=== PATIENT | male | born 1970 | race Caucasian/White ===

== ENCOUNTER 2018-01-14 10:23 | Outpatient (CLI) | payer BC, SELFPAY ==
[2018-01-14 10:50] VITALS: BP 135/85; PULSE 86; RESP 18; TEMP 35.9
[2018-01-14 11:20] VITALS: BP 141/91; PULSE 74; RESP 18
[2018-01-14 11:50] VITALS: BP 142/107; PULSE 78; RESP 18
[2018-01-14 12:20] VITALS: BP 141/87; PULSE 72; RESP 18
[2018-01-14 12:50] VITALS: BP 136/79; PULSE 73; RESP 18
[2018-01-14 13:09] LABS: Adenovirus F 40/41, stool Not Detected (NotDetected); Astrovirus Not Detected (NotDetected); Campylobacter Not Detected (NotDetected); Clostridium Difficile A/B, PCR Not Detected (NotDetected); Cryptosporidium Not Detected (NotDetected); Cyclospora Cayetanesis Not Detected (NotDetected); Entamoeba histolytica Not Detected (NotDetected); Norovirus Not Detected (NotDetected); Plesimonas Shigalloides, PCR Not Detected (NotDetected); Rotavirus A Not Detected (NotDetected); Salmonella, PCR Not Detected (NotDetected); Sapovirus Not Detected (NotDetected); Shiga-like toxin E coli Not Detected (NotDetected); Shigella Enterovasive E coli Not Detected (NotDetected); Vibrio Cholerae Not Detected (NotDetected); Vibrio, PCR Not Detected (NotDetected); Yersinia Entercolitica, PCR Not Detected (NotDetected)
[2018-01-14 16:42] LABS: Enteroaggregative E coli Detected (NotDetected); Enteropathogenic E coli Detected (NotDetected); Enterotoxigenic E coli Detected (NotDetected); Giardia lamblia Detected (NotDetected)
== END 2018-01-14 12:55 | disposition home or self-care (01) ==
PROVIDERS: Visit Provider Physician Assistant
DX: R19.7 Diarrhea, unspecified (principal); E86.0 Dehydration
CPT/HCPCS: 87507; 96360; 96361

== ENCOUNTER → 2021-03-25 12:55 | Outpatient (CLI) | payer BC, SELFPAY ==
--- NOTE | 2021-03-25 | CA_ITS ---
APPROVED REPORT Attendant Coin Operated Laundry: MAU Laterality: Bilateral Study Quality: Good Indications: Bruits bilateral Doppler Spectral Velocity Analysis ECA (R) 128.10/19.30 cm/s ECA (L) 91.30/16.50 cm/s dICA (R) 68.10/26.20 cm/s dICA (L) 81.60/36.70 cm/s Myke (R) 65.10/28.40 cm/s Myke (L) 77.10/32.90 cm/s pICA (R) 86.70/30.80 cm/s pICA (L) 70.30/22.40 cm/s dCCA (R) 73.20/22.20 cm/s dCCA (L) 86.80/24.70 cm/s pCCA (R) 101.60/17.10 cm/s pCCA (L) 99.50/21.70 cm/s Vert (R) 41.90/10.50 cm/s Vert (L) 47.90/18.00 cm/s ICA/CCA 1.18 ICA/CCA 0.94 Findings Duplex evaluation demonstrates stenosis of the right proximal internal carotid artery <20% with PSV <140 cm/sec, EDV <100 cm/sec, and IC/CC Ratio <4.0. Duplex evaluation demonstrates stenosis of the left proximal internal carotid artery <20% with PSV <140 cm/sec, EDV <100 cm/sec, and IC/CC Ratio <4.0. Duplex evaluation demonstrates antegrade flow of the bilateral Vertebral Arteries. Conclusion Duplex evaluation demonstrates stenosis of the right proximal internal carotid artery <20% with PSV <140 cm/sec, EDV <100 cm/sec, and IC/CC Ratio <4.0. Duplex evaluation demonstrates stenosis of the left proximal internal carotid artery <20% with PSV <140 cm/sec, EDV <100 cm/sec, and IC/CC Ratio <4.0. Duplex evaluation demonstrates antegrade flow of the bilateral Vertebral Arteries. Electronically signed by : Yasmany Lofton MD 03/25/2021 16:15:37
== END ==
PROVIDERS: PCP Family Medicine; Visit Provider Family Medicine
DX: R09.89 Other specified symptoms and signs involving the circulatory and respiratory systems (principal)
CPT/HCPCS: 93880

== ENCOUNTER 2024-01-26 09:02 | Outpatient (CLI) | payer BC, SELFPAY ==
--- NOTE | 2024-01-26 09:18 | CT_ITS ---
FINAL REPORT TECHNIQUE: Thin section axial images were obtained from the lung apices to the upper abdomen by computed tomography. Reformatted images were obtained and reviewed. This study was performed with techniques to keep radiation doses al low as reasonably achievable (ALARA). Individualized dose reduction techniques using automated exposure control or adjustment of mA and/or kV according to the patient's size were employed. CLINICAL HISTORY: SMOKER 1 PPD X 35 YEARS COMPARISON: None FINDINGS: CHEST CT LOW DOSE 54-year-old male, current smoker, 78-dkeb-zzyh history. CTDI vol (mGy): 2.9 DLP (mGy-cm): 113.59 There is no axillary adenopathy. There is no mediastinal or hilar mass or adenopathy. The heart is normal in size. There is no pericardial or pleural effusion. Mild atelectasis is present in the lung bases. Lung window images demonstrate there is a 4 mm left upper lobe nodule, best seen on image #46. There is a nodule at the major fissure, measuring 7 mm in size, likely an intrafissural lymph node. There is a 5 mm nodule in the medial right upper lobe, best seen on image #46. Limited images of the upper abdomen reveal a prior cholecystectomy. IMPRESSION: Lung-RADS category 2. Recommend 12 month follow up low dose chest CT. Reviewed, Interpreted and Dictated by Steven Wells III, MD Transcribed by Emily Greer Authenticated and [facility]
== END 2024-01-26 23:59 | disposition home or self-care (01) ==
LOC: RAD 09:03
PROVIDERS: PCP Psychiatry & Neurology Sleep Medicine; Visit Provider Family Medicine
DX: F17.210 Nicotine dependence, cigarettes, uncomplicated (principal)
CPT/HCPCS: 71271

== ENCOUNTER 2025-04-11 16:20 | Inpatient (IN) | payer BC, SELFPAY ==
--- OUTSIDE RECORDS SUMMARY | 2024-01-17 06:15 | XMS_ITS ---
Author Organization [facility] Address [address] [place] [id number] Care Team Providers Care Cutting And Splicing Supervisor Name Role Phone Steff Ace Primary Care Provider [phone] Allergies No Known Allergies Results Component Value Reference Range Notes Glycohemoglobin A1c (in hous e) Reviewed date:01/17/2024 11:47:36 AM Interpretation: Performing Lab: Notes/Report: glycohemoglobin 6.7% 5 - 6.5 % Cologuard Reviewed date:07/24/2024 12:48:19 PM Interpretation:Negative Performing Lab: Notes/Report: Negative Cologuard Negative P-Comprehensive Metabolic Pa alex (CMP) Reviewed date:01/26/2024 12:25:51 PM Interpretation:gluc 105, a/g 2.9 Performing Lab: Notes/Report: Test performed by [employer], [employer] [facility] , [address], [place] [address] Everette Dee MD, Food And Nutrition Teacher CLIA: [id number] Sodium 139 135-145 mmol/L Potassium 5.1 3.5-5.3 [...] 33 Performing Lab: Notes/Report: Test performed by [employer] [address] , [address], [place] [address] Everette Dee MD, Food And Nutrition Teacher CLIA: [id number] Cholesterol 122 <200 mg/dL Triglycerides 157 <150 [...] Interpretation:Normal Performing Lab: Notes/Report: Test performed by [employer], [address] , [address], [place] [address] Everette Dee MD, Food And Nutrition Teacher CLIA: [id number] PSA 0.18 <4.00 ng/mL Please note this [...] Encounter Location Date Provider Diagnosis [facility] [address] [facility] [address] [facility] [address] [place] [id number] 01/17/2024 Steff Ace Type 2 diabetes mellitus [...] 6 Months, Reason: Provider Name:Steff Washington er, 06/18/2025 10:00:00 AM, [address] [facility] [address] [facility], [address], [place], [phone], Procedure Notes * Category Sub-Category Detail Notes Cryotherapy Actinic Keratosis Number of lesions treated: right buddhist and right hand dorsum Method: Maranda LL-100 used to freeze and refreeze the lesions, The patient tolerated the procedure well. Post Op instruction: Wash with vinegar w ater twice a day, Apply Vaseline twice a day Progress Notes * STEF HERNÁNDEZOB:1970 ([age] yo M)Acc No.[id number]:01/17/2024 Patient: CA ARENAS Provider: Steff Ace M.D. :1970 A ge:53 Y S ex:Male Date:01/17/2024 Address:[address] [place] [address] [address], [place], [id number] Subjective: * Chief Complaints: * 1 . 6 month f/u fasting. 2. Needs labs with PSA, colon cancer screening, low dose chest CT, diabetic eye exam, Tdap, & shingles vaccine. * HPI: C ardiology: The pt is here for a check up on Hypertension and Diabetes. Pt states he has a spot on the right buddhist he would like checked out. Pt states [...] riglycerides 157 H <150 - mg/dL * KelvinSylvia 01/26/2024 12:25:44 PM >See phone encounter 5.?Tobacco use?Imaging: CT Scan : Chest, low dose (Performed Date - 01/26/2024)?nothing suspicious, annual f/u* AdrianeFara 01/18/2024 10:20 :46 AM > auth# [id number], valid 01/18/2024 through 02/16/2024; CPT [id number],Brynn 01/18/2024 10:48:24 AM > [facility] 01/26/2024 at 09:15am; pt informed; order faxedGoble,Joann 01/31/2024 3:00:05 PM > pt informed of results * Procedures: C ryotherapy Actinic Keratosis: Number of lesions treated: r ight buddhist and right hand dorsum. M ethod: W allach LL-100 used to freeze and refreeze the lesions, The patient tolerated the procedure well.. P ost Op instruction: W yung with vinegar water twice a day, Apply Vaseline twice a day. * Procedure Codes: 3 6416 CAPILLARY BLOOD DRAW, [address]1447 GLYCATED HEMOGLOBIN TEST, Modifiers: QW , 70287 DESTRUCTION BENIGN LESION, CRYOSURGERY,ELECTROSURGERY FIRST LESION, 08217 DESTRUCTION BENIGN LESION,CRYO, ELECTRO, 2-14 LESIONS * Follow Up: 6 Months * Images: Billing Information: * Visit Code: 40450 Office Visit, Est Pt., Level 4. * Procedure Codes: 29439 CAPILLARY BLOOD DRAW. 21591 GLYCATED HEMOGLOBIN TEST. Modifiers: QW 14357 DESTRUCTION BENIGN LESION, CRYOSURGERY,ELECTROSURGERY FIRST LESION. 69134 DESTRUCTION BENIGN LESION,CRYO, ELECTRO, 2-14 LESIONS. * Electronic signature of Steff Ace MD on 04/11/2025 at 05:08 PM EDT Sign off status: Pending * Provider: Steff Ace M.D. Date: 0 01/17/2024 Generated for Teja martinez/[place]ismark/eTransmitting on: 0 04/11/2025 05:08 PM EDT History and Physical Notes * HPI (History of Present Illness) Category Sub-Category Detail Notes Category Not es Cardiology Short of Breath Chest Pain Palpitations Dizziness Examination Category Sub-Category Detail Notes Category Not es General Examination HEENT: unremarkable Heart: RSR Lungs: clear to auscultatio n Abdomen: soft and nontender, no organomegaly or masses Extremities: no leg edema General Appearance: NAD Skin: buddhist lesion c/w ac tinic keratosis, keratotic lesion of the right hand dorsum has recurred Neurologic Exam: Intact, gait normal Neck: supple, no lymphaden opathy Oral cavity: no lesions, mucosa m oist and WNL, no erythema Peripheral pulses: normal Back: normal Chest: normal shape and exp ansion
--- OUTSIDE RECORDS SUMMARY | 2024-01-17 06:15 | XMS_ITS ---
Author Organization [facility] Address [address] [place] [id number] Care Team Providers Care Intelligence Engineer Name Role Phone Steff Ace Primary Care [...] 2.9 Performing Lab: Notes/Report: Test performed by [employer], [employer] [facility] , [address], [place] [address] Everette Dee MD, Power And Recovery Shift Engineer CLIA: [id number] Sodium 139 135-145 mmol/L Potassium 5.1 3.5-5.3 [...] 33 Performing Lab: Notes/Report: Test performed by [employer] [address] , [address], [place] [address] Everette Dee MD, Power And Recovery Shift Engineer CLIA: [id number] Cholesterol 122 <200 mg/dL Triglycerides 157 <150 [...] Interpretation:Normal Performing Lab: Notes/Report: Test performed by [employer], [address] , [address], [place] [address] Everette Dee MD, Power And Recovery Shift Engineer CLIA: [id number] PSA 0.18 <4.00 ng/mL Please note this [...] Encounter Location Date Provider Diagnosis [facility] [address] [facility] 36 [facility] [address] [place] [phone] 01/17/2024 Steff Ace Type 2 diabetes mellitus [...] Name:Steff Washington er, 06/18/2025 10:00:00 AM, [address] [facility] 36 [facility], [address], [place], [phone], Procedure Notes * Category Sub-Category Detail Notes Cryotherapy Actinic Keratosis Number of lesions treated: right hindu and right hand dorsum Method: Maranda LL-100 used to freeze and refreeze the lesions, The patient tolerated the procedure well. Post Op instruction: Wash with vinegar w ater twice a day, Apply Vaseline twice a day Progress Notes * STEF HERNÁNDEZOB:1970 ([age] yo M)Acc No.[id number]:01/17/2024 Patient: CA ARENAS Provider: Steff Ace M.D. :1970 A ge:53 Y S ex:Male Date:01/17/2024 Address:[address] [place] [address] [address], [place], [id number] Subjective: * Chief Complaints: * 1 . 6 month f/u fasting. 2. Needs labs with PSA, colon cancer screening, low dose chest CT, diabetic eye exam, Tdap, & shingles vaccine. * HPI: C ardiology: The pt is here for a check up on Hypertension and Diabetes. Pt states he has a spot on the right hindu he would like checked out. Pt states [...] riglycerides 157 H <150 - mg/dL * Rod Warrengh Ann 01/26/2024 12:25:44 PM >See phone encounter 5.?Tobacco use?Imaging: CT Scan : Chest, low dose (Performed Date - 01/26/2024)?nothing suspicious, annual f/u* AdrianeFara 01/18/2024 10:20 :46 AM > auth# [id number], valid 01/18/2024 through 02/16/2024; CPT [id number],Brynn 01/18/2024 10:48:24 AM > [facility] 01/26/2024 at 09:15am; pt informed; order faxedGoble,Joann 01/31/2024 3:00:05 PM > pt informed of results * Procedures: C ryotherapy Actinic Keratosis: Number of lesions treated: r ight hindu and right hand dorsum. M ethod: W allach LL-100 used to freeze and refreeze the lesions, The patient tolerated the procedure well.. P ost Op instruction: W yung with vinegar water twice a day, Apply Vaseline twice a day. * Procedure Codes: 3 6416 CAPILLARY BLOOD DRAW, 68570 GLYCATED HEMOGLOBIN TEST, Modifiers: QW , 61181 DESTRUCTION BENIGN LESION, CRYOSURGERY,ELECTROSURGERY FIRST LESION, 95448 DESTRUCTION BENIGN LESION,CRYO, ELECTRO, 2-14 LESIONS * Follow Up: 6 Months * Images: Billing Information: * Visit Code: 54244 Office Visit, Est Pt., Level 4. * Procedure Codes: 58773 CAPILLARY BLOOD DRAW. 32551 GLYCATED HEMOGLOBIN TEST. Modifiers: QW 85764 DESTRUCTION BENIGN LESION, CRYOSURGERY,ELECTROSURGERY FIRST LESION. 88548 DESTRUCTION BENIGN LESION,CRYO, ELECTRO, 2-14 LESIONS. * Electronic signature of Steff Ace MD on 04/12/2025 at 11:48 AM EDT Sign off status: Pending * Provider: Steff Ace M.D. Date: 0 01/17/2024 Generated for Teja martinez/[place]ismark/eTransmitting on: 0 04/12/2025 11:48 AM EDT History and Physical Notes * HPI (History of Present Illness) Category Sub-Category Detail Notes Category Not es Cardiology Short of Breath Chest Pain Palpitations Dizziness Examination Category Sub-Category Detail Notes Category Not es General Examination HEENT: unremarkable Heart: RSR Lungs: clear to auscultatio n Abdomen: soft and nontender, no organomegaly or masses Extremities: no leg edema General Appearance: NAD Skin: hindu lesion c/w ac tinic keratosis, keratotic lesion of the right hand dorsum has recurred Neurologic Exam: Intact, gait normal Neck: supple, no lymphaden opathy Oral cavity: no lesions, mucosa m oist and WNL, no erythema Peripheral pulses: normal Back: normal Chest: normal shape and exp ansion
--- OUTSIDE RECORDS SUMMARY | 2024-01-20 06:30 | XMS_ITS ---
Author Organization [facility] Address [address] [facility] [address] [place] [id number] Care Team Providers Care Manager Managing Name Role Phone Steff Ace Primary Care Provider REASON FOR VISIT 6 mo ck Encounters Encounter Location Date Provider Diagnosis [facility] [address] [place] [id number] 01/20/2024 Steff Ace Plan Of Treatment Next Appt Details Provider Name:Steff Washington er, 06/18/2025 10:00:00 AM, [address], [address], [place], [phone], Progress Notes * STEF HERNÁNDEZOB:1970 ([age] yo M)Acc No.[id number]:01/20/2024 Progress Notes Patient: CA ARENAS Provider: Steff Ace M.D. :1970 A ge:53 Y S ex:Male Date:01/20/2024 [facility]:[address] [facility] [address], [id number] Subjective: * Chief Complaints: * 1 . 6 mo ck. * Medical History: Objective: * Vitals: Assessment: Plan: * Treatment: * Images: Billing Information: * Visit Code: * Procedure Codes: * Electronic signature of Steff Ace MD on 04/11/2025 at 05:08 PM EDT Sign off status: Pending * Provider: Steff Ace M.D. Date: 0 01/20/2024 Generated for Teja martinez/Bismark/Luis F on: 0 04/11/2025 05:08 PM EDT
--- OUTSIDE RECORDS SUMMARY | 2024-01-20 06:30 | XMS_ITS ---
Author Organization [facility] Address [address] [facility] [address] [place] [phone] Care Team Providers Care Central Processing Technician Name Role Phone Steff Ace Primary Care Provider REASON FOR VISIT 6 mo ck Encounters Encounter Location Date Provider Diagnosis [facility] [address] [place] [id number] 01/20/2024 Steff Ace Plan Of Treatment Next Appt Details Provider Name:Steff Washington er, 06/18/2025 10:00:00 AM, [address], [address], [place], [phone], Progress Notes * STEF HERNÁNDEZOB:1970 ([age] yo M)Acc No.[id number]:01/20/2024 Progress Notes Patient: AC ARENAS Provider: Steff Ace M.D. :1970 A ge:53 Y S ex:Male Date:01/20/2024 Address[facility] [facility] [address], [id number] Subjective: * Chief Complaints: * 1 . 6 mo ck. * Medical History: Objective: * Vitals: Assessment: Plan: * Treatment: * Images: Billing Information: * Visit Code: * Procedure Codes: * Electronic signature of Steff Ace MD on 04/12/2025 at 11:48 AM EDT Sign off status: Pending * Provider: Steff Ace M.D. Date: 0 01/20/2024 Generated for Teja martinez/Bismark/Damionitting on: 0 04/12/2025 11:48 AM EDT
--- OUTSIDE RECORDS SUMMARY | 2024-07-24 05:30 | XMS_ITS ---
Author Organization [facility] Address [address] [place] [id number] Care Team Providers Care Legal Writing Professor Name Role Phone Steff Ace Primary Care Provider Allergies No Known Allergies Results Component Value Reference Range Notes Glycohemoglobin A1c (in hous e) Reviewed date:07/25/2024 09:50:04 AM Interpretation:6.7% Performing Lab: Notes/Report: 6.7% glycohemoglobin 6.7% 5 - 6.5 % P-Comprehensive Metabolic Pa alex (CMP) Reviewed date:07/25/2024 09:50:04 AM Interpretation:gluc 121 Performing Lab: Notes/Report: Test performed by [facility]0 [facility] , [address], [place] [address] Everette Dee MD, Flooring Installer CLIA: [id number] Sodium 139 135-145 mmol/L Potassium 5.2 3.5-5.3 [...] 36 Performing Lab: Notes/Report: Test performed by [facility], [address] , [address] , [place] [address] Everette Dee MD, Flooring Installer CLIA: [id number] Cholesterol 149 <200 mg/dL Triglycerides 184 <150 [...] Interpretation:Normal Performing Lab: Notes/Report: Test performed by [facility] [address] [place] [address] , [address], [place] [address] Everette Dee MD, Flooring Installer CLIA: [id number] Albumin/Creatinine Ratio, Urine <10.7 0-30 ug/m g [...] due to type 2 diabetes mellitus (disorder) (583229456085846) Hyperlipidemia associated with type 2 diabetes mellitus (E11.69) Active confirmed Vital Signs Blood pressure systolic 126 mm Hg 07/24/20 24 Blood pressure diastolic 80 mm Hg 024 Heart Rate 58 /min 07/24/2024 Height 74.50 in 07/24/2024 Weight 249.2 lbs 07/24/2024 BMI 31.56 kg/m2 07/24/2024 Encounters Encounter Location Date Provider Diagnosis [facility] [address] [facility] 36 [facility] [address] [place], [place] [phone] 07/24/2024 Steff Ace Hyperlipidemia associated with type [...] 4 Months, Reason: Provider Name:Steff Washington er, 06/18/2025 10:00:00 AM, [address] [facility] 36 [facility], [address], [place], [phone], Progress Notes * JOE HERNÁNDEZYUSUFOB:1970 ([age] yo M)Acc No.[id number]:07/24/2024 Progress Notes Patient: CA ARENAS Provider: Steff Ace M.D. :1970 A ge:54 Y S ex:Male Date:07/24/2024 Address:[address] [place] [address], [id number] Subjective: * Chief Complaints: * 1 . [...] * Images: Billing Information: * Visit Code: 88666 Office Visit, Est Pt., Level 4. * Procedure Codes: 94981 GLYCATED HEMOGLOBIN TEST. Modifiers: QW * Electronic signature of Steff Ace MD on 04/11/2025 at 05:09 PM EDT Sign off status: Pending * Provider: Steff Ace M.D. Date: 1 Generated for Ritai ng/Fapierog/eTransmitting on: 0 04/11/2025 05:09 PM EDT History and Physical Notes * [...]
--- OUTSIDE RECORDS SUMMARY | 2024-07-24 05:30 | XMS_ITS ---
Author Organization [facility] Address [address] [place] [id number] Care Team Providers Care Vending Technician Name Role Phone Steff Ace Primary Care Provider Allergies No Known Allergies Results Component Value Reference Range Notes Glycohemoglobin A1c (in hous e) Reviewed date:07/25/2024 09:50:04 AM Interpretation:6.7% Performing Lab: Notes/Report: 6.7% glycohemoglobin 6.7% 5 - 6.5 % P-Comprehensive Metabolic Pa alex (CMP) Reviewed date:07/25/2024 09:50:04 AM Interpretation:gluc 121 Performing Lab: Notes/Report: Test performed by [facility] , [address], [place] [address] Everette Dee MD, Network Engineer Administrator CLIA: [id number] Sodium 139 135-145 mmol/L Potassium 5.2 3.5-5.3 [...] 36 Performing Lab: Notes/Report: Test performed by [facility], [address] , [address] , [place] [address] Everette Dee MD, Network Engineer Administrator CLIA: [id number] Cholesterol 149 <200 mg/dL Triglycerides 184 <150 [...] Interpretation:Normal Performing Lab: Notes/Report: Test performed by [facility] [address] [place] [address] , [address], [place] [address] Everette Dee MD, Network Engineer Administrator CLIA: [id number] Albumin/Creatinine Ratio, Urine <10.7 0-30 ug/m g [...] due to type 2 diabetes mellitus (disorder) (069274925099763) Hyperlipidemia associated with type 2 diabetes mellitus (E11.69) Active confirmed Vital Signs Blood pressure systolic 126 mm Hg 07/24/20 24 Blood pressure diastolic 80 mm Hg 024 Heart Rate 58 /min 07/24/2024 Height 74.50 in 07/24/2024 Weight 249.2 lbs 07/24/2024 BMI 31.56 kg/m2 07/24/2024 Encounters Encounter Location Date Provider Diagnosis [facility] [address] [facility] 36 [facility] [address] [place], [place] [phone] 07/24/2024 Steff Ace Hyperlipidemia associated with type [...] Name:Steff [place] er, 06/18/2025 10:00:00 AM, [address] [facility] [address] [facility], [address], [place], [id number], Progress Notes * JOE HERNÁNDEZYUSUFOB:1970 ([age] yo M)Acc No.[id number]:07/24/2024 Progress Notes Patient: CA ARENAS Provider: Steff Ace M.D. :1970 A ge:54 Y S ex:Male Date:07/24/2024 Address:[address] [place] [address], [id number] Subjective: * Chief Complaints: * 1 . [...] * Images: Billing Information: * Visit Code: 75146 Office Visit, Est Pt., Level 4. * Procedure Codes: 62033 GLYCATED HEMOGLOBIN TEST. Modifiers: QW * Electronic signature of Steff Ace MD on 04/12/2025 at 11:49 AM EDT Sign off status: Pending * Provider: Steff Ace M.D. Date: 1 Generated for Printi ng/Fapierog/eTransmitting on: 0 04/12/2025 11:49 AM EDT History and Physical Notes * [...]
--- OUTSIDE RECORDS SUMMARY | 2024-11-13 05:45 | XMS_ITS ---
Author Organization [facility] Address [address] [place] [id number] Care Team Providers Care Rn Internship Name Role Phone Steff Ace Primary Care Provider [phone] Allergies No Known Allergies Results Component Value Reference Range Notes P-Comprehensive Metabolic Pa alex (CMP) Reviewed date:12/08/2024 01:11:50 PM Interpretation:gluc 129 Performing Lab: Notes/Report: Test performed by [facility] [address] [place] [address] , [address], [place] [address] Everette Dee MD, Computer Architect CLIA: [id number] Sodium 139 135-145 mmol/L Potassium 5.2 3.5-5.3 [...] Interpretation:7.3 Performing Lab: Notes/Report: Test performed by [facility] [address] [place] [address] , [facility], [place] [address] Everette Dee MD, Computer Architect CLIA: [id number] Hemoglobin A1C 7.3 <5.7 % The following HbA1c ranges recommended by the [place] Diabetes [employer] (ADA) may be used as an aid in the diagnosis of diabetes mellitus. HbA1c Suggested Diagnosis >=6.5% Diabetic 5.7% - 6.4% Pre-Diabetic <5.7% Non-Diabetic P-Microalbumin/Creatinine, R andom Urine Sample Reviewed date:12/08/2024 01:11:50 PM Interpretation:Normal Performing Lab: Notes/Report: Test performed by [facility] [address] [place] [address] , [facility] [place] [id number] Everette Dee MD, Computer Architect CLIA: [id number] Albumin/Creatinine Ratio, Urine <5.08 0-30 ug/m g Microalbumin, Urine, Random <0.3 Creatinine, Urine 59.0 Estimated Average Glucose Reviewed date:12/08/2024 01:11:50 PM Interpretation:163 Performing Lab: Notes/Report: Test performed by [facility] [address] [place] [address] , [facility], [place] [address] Everette Dee MD, Computer Architect CLIA: [id number] Estimated Average Glucose (eAG) 163 Estimated Average [...] Notes Problem Xanthelasma of right lower eyelid (996179513091872 ) Xanthelasma of right lower eyelid (H02.62) Active confirmed Vital Signs Blood pressure systolic 132 mm Hg 11/14/19 25 Blood pressure diastolic 82 mm Hg 025 Heart Rate 54 /min 11/13/2024 Height 74.50 in 11/13/2024 Weight 249.2 lbs 11/13/2024 BMI 31.56 kg/m2 11/13/2024 Encounters Encounter Location Date Provider Diagnosis [facility] 36 [facility] [address] [place] [id number] 11/13/2024 Steff Ace Type 2 diabetes mellitus [...] Washington er, 06/18/2025 10:00:00 AM, [address] [facility] 36 [facility], [address], [place], [phone], Progress Notes * STEF HERNÁNDEZOB:1970 ([age] yo M)Acc No.[id number]:11/13/2024 Progress Notes Patient: W JACKIE, [place] Provider: Steff Ace M.D. :1970 A ge:54 Y S ex:Male Date:11/13/2024 Address:[address] [place] [address] [place], [id number] Subjective: * Chief Complaints: * 1 . [...] * Images: Billing Information: * Visit Code: 55993 Office Visit, Est Pt., Level 4. * Procedure Codes: 3051F HG A1C>EQUAL 7.0%<8.0%. 3075F SYST BP GE 130 - 139MM HG. 3079F DIAST BP 80-89 MM HG. * Electronic signature of Steff Ace MD on 04/11/2025 at 05:08 PM EDT Sign off status: Pending * Provider: Steff Ace M.D. Date: 0 11/13/2024 Generated for Printi ng/[employer]/eTransmitting on: 0 04/11/2025 05:08 PM EDT History [...]
--- OUTSIDE RECORDS SUMMARY | 2024-11-13 05:45 | XMS_ITS ---
Author Organization [facility] Address [address] [place] [phone] Care Team Providers Care Vice President Residential Solar Sales Name Role Phone Steff Ace Primary Care Provider [phone] Allergies No Known Allergies Results Component Value Reference Range Notes P-Comprehensive Metabolic Pa alex (CMP) Reviewed date:12/08/2024 01:11:50 PM Interpretation:gluc 129 Performing Lab: Notes/Report: Test performed by [facility] [address] [place] [address] , [address], [place] [address] Everette Dee MD, Monument Setter Helper CLIA: [id number] Sodium 139 135-145 mmol/L Potassium 5.2 3.5-5.3 [...] Interpretation:7.3 Performing Lab: Notes/Report: Test performed by [facility] [address] [place] [address] , [facility], [place] [address] Everette Dee MD, Monument Setter Helper CLIA: [id number] Hemoglobin A1C 7.3 <5.7 % The following HbA1c ranges recommended by the [place] Diabetes Association (ADA) may be used as an aid in the diagnosis of diabetes mellitus. HbA1c Suggested Diagnosis >=6.5% Diabetic 5.7% - 6.4% Pre-Diabetic <5.7% Non-Diabetic P-Microalbumin/Creatinine, R andom Urine Sample Reviewed date:12/08/2024 01:11:50 PM Interpretation:Normal Performing Lab: Notes/Report: Test performed by [facility] [address] [place] [address] , [facility] [place] [id number] Everette Dee MD, Monument Setter Helper CLIA: [id number] Albumin/Creatinine Ratio, Urine <5.08 0-30 ug/m g Microalbumin, Urine, Random <0.3 Creatinine, Urine 59.0 Estimated Average Glucose Reviewed date:12/08/2024 01:11:50 PM Interpretation:163 Performing Lab: Notes/Report: Test performed by [facility] [address] [place] [address] , [facility], [place] [address] Everette Dee MD, Monument Setter Helper CLIA: [id number] Estimated Average Glucose (eAG) 163 Estimated Average [...] Notes Problem Xanthelasma of right lower eyelid ([id number] ) Xanthelasma of right lower eyelid (H02.62) Active confirmed Vital Signs Blood pressure systolic 132 mm Hg 11/14/19 25 Blood pressure diastolic 82 mm Hg 025 Heart Rate 54 /min 11/13/2024 Height 74.50 in 11/13/2024 Weight 249.2 lbs 11/13/2024 BMI 31.56 kg/m2 11/13/2024 Encounters Encounter Location Date Provider Diagnosis [facility] 36 [facility] [address] [place] [id number] 11/13/2024 Steff Ace Type 2 diabetes mellitus [...] [place] er, 06/18/2025 10:00:00 AM, [address] [facility] 36 [facility], [address], [place], [phone], Progress Notes * STEF HERNÁNDEZOB:1970 ([age] yo M)Acc No.[id number]:11/13/2024 Progress Notes Patient: W JACKIE, [place] Provider: Steff Ace M.D. :1970 A ge:54 Y S ex:Male Date:11/13/2024 Address:[address] [place] [address] JERMAINE ISLAS, [id number] Subjective: * Chief Complaints: * 1 . [...] mucosa moist and WNL, no erythema. N ajne: s upple, no lymphadenopathy. C hest: n [...] of insulin - E11.9 3 . B MT 31.0-31.9,adult - Z68.31 4 . X anthelasma [...] stimated Average Glucose 163 - mg/dL * [facility], IT support 11/14/2024 07:30:08 : This order was created by the Interface. Joann Montilla 12/08/2024 01:11:42 PM > See phone encounter * Procedure Codes: 3 051F HG A1C>EQUAL 7.0%<8.0%, 3075F SYST BP GE 130 - 139MM HG, 3079F DIAST BP 80- 89 MM HG * Follow Up: 4 Months * Images: Billing Information: * Visit Code: 15903 Office Visit, Est Pt., Level 4. * Procedure Codes: 3051F HG A1C>EQUAL 7.0%<8.0%. 3075F SYST BP GE 130 - 139MM HG. 3079F DIAST BP 80-89 MM HG. * Electronic signature of Steff Ace MD on 04/12/2025 at 11:49 AM EDT Sign off status: Pending * Provider: Steff Ace M.D. Date: 0 11/13/2024 Generated for Printi ng/[employer]/eTransmitting on: 0 04/12/2025 [...]
[2025-04-11] VITALS (8 sets, daily range): BP systolic 139–188; BP diastolic 73–98; PULSE 67–81; RESP 17–18; TEMP 36.6–37.1; O2SAT 95–98; BMI 31.9
--- OUTSIDE RECORDS SUMMARY | 2025-04-11 11:15 | XMS_ITS ---
Author Organization [facility] Address [facility] 36 [facility] [address] [place] [phone] Care Team Providers Care Chemical Process Equipment Operator Name Role Phone Steff Ace Primary Care Provider Tano Grossman Unavailable [phone] Allergies No Known Allergies REASON FOR VISIT [...] Encounter Location Date Provider Diagnosis [facility] [address] [place] [phone] 04/11/2025 Tano Grossman Left inguinal pain R10.32 Assessments Encounter Date Diagnosis (ICD Code) Assessment Notes Treatment Notes Treatment Clinical Notes Section Notes 04/11/2025 Left inguinal pain (ICD-10 - R10.32) Spoke to Dr. Campoverde specialty development consultant for general surgery who recommends evaluation in the ER. Spoke to Dr. Donohue in the ER. She will see patient and evaluation for treatment. Plan Of Treatment Treatment Notes Assessment Notes Left inguinal pain Spoke to Dr. Campoverde specialty development consultant for general surgery who recommends evaluation in the ER. Spoke to Dr. Donohue in the ER. She will see patient and evaluation for treatment. Next Appt Details Provider Name:Steff [place] er, 06/18/2025 10:00:00 AM, 1210 [facility] 36 [facility], [address], [place], [place], [phone], Progress Notes * STEF HERNÁNDEZOB:1970 ([age] yo M)Acc No.[id number]:04/11/2025 Progress Notes Patient: [place] ARENAS Provider: Karan Grossman M.D. :1970 A ge:54 Y S ex:Male Date:04/11/2025 Address:[address] [place] [address] , [id number] Pcp:Steff Ace Subjective: * Chief Complaints: * [...] - R10.32 (Primary) Plan: * Treatment: * Images: Billing Information: * Visit Code: 56251 Office Visit, Est Pt., Level 4. * Procedure Codes: * Electronic signature of Nina Grossman MD on 04/12/2025 at 11:49 AM EDT Sign off status: Pending * Provider: Karan Grossman M.D. Date: 04/11/2025 Generated for Teja martinez/Bismark/Karensmitting on: 0 04/12/2025 11:49 AM EDT History [...]
--- NOTE | 2025-04-11 17:02 | ED_ITS ---
<Statement entered by Lily Donohue DO - 04/15/25 00:05> I was consulted by the SARA, and we discussed the complexity of problems being addressed. I approve the treatment and management plan for this patient's care in the emergency department, thus performing a substantial portion of the medical decision making. Lily Donohue DO Discharge Plan Disposition Patient Disposition: Admitted Condition: Fair Clinical Impressions Clinical Impression: Cutaneous abscess of perineum Discharge ED Provider: Lily Donohue General Adult HPI General Chief complaint: PAIN Stated complaint: ruma sent him to ER, possible hernia Time Seen by Provider: 04/11/25 17:02 Mode of Arrival: Ambulatory Source of Information: Patient Description of Symptoms (Recalled from ER Triage Doc. by RN): PT presents to the ED from Dr. grossman's office with complaints of a possible inguinal hernia. Pt reported the pain and swelling started in his left groin/hip area yesterday at work. Pt states he feels body aches as well. History of Present Illness HPI narrative: 54-year-old male presents to the emergency department at the request of his PCP today for a 2-day history of dull aching and swelling in his left testicle/inguinal/groin region, concern for possible incarcerated versus strangulated inguinal hernia by PCP this prompted to come to the emergency department. Patient denies any fever chills, admits to some subjective body aches , chest pain shortness of breath nausea vomiting constipation diarrhea, denies any overt abdominal pain, denies any urinary type symptomatology, denies urethral discharge, no new sexual contacts, patient is current everyday smoker, denies any alcohol or drug use, other past medical history except for T2DM, prior cholecystectomy otherwise unremarkable past medical history. Please note that above description of symptoms, in this electronic medical record under categorization of recalled from ER triage doctor by RN are reflective of an initial nursing assessment, however, is not reflective of my full history and physical exam that was personally taken and clarified. Consequentially, this preceding description of symptoms, which may include the patient's categorized chief complaint in the EMR, do not reflect my personal clinical impression, and the ultimate description of history of present illness and patient stated complaints should be deferred to this section of the note. Unless stated otherwise or congruent with this section of the note, additional signs, symptoms, or incongruence should be interpreted as inaccurate with my clinical impression. Onset (ago): day(s) Related Data Home Medications ?Medication ?Instructions ?Recorded ?Confirmed dapagliflozin propanediol 10 mg 10 mg PO DAILY 5 04/11/25 tablet (Farxiga) metformin 850 mg tablet 850 mg PO DAILY 04/11/25 Allergies Allergy/AdvReac Type Severity Reaction Status Date / Time No Known Allergies Allergy Verified 01/14/18 10:39 [facility] Disclaimer: The information contained in this section may have been updated after the patient was seen, as this information can be updated by other users. Social History Smoking Status: Current every day smoker alcohol intake: never current occupational status: other Travel in the last 8 weeks?: None ROS Obtained: Yes All systems reviewed & no additional complaints except as documented Physical Exam General General appearance: alert and in no apparent distress Head Head exam: atraumatic and normocephalic Eye Eye exam: Present PERRL and EOMI ENT ENT exam: Present mucous membranes moist Neck Neck exam: Present normal inspection Chest Chest inspection: Present normal inspection and symmetric chest wall rise Respiratory Respiratory exam: Present normal lung sounds bilaterally; Absent respiratory distress Cardiovascular Cardiovascular exam: Present regular rate and normal rhythm Abdominal Exam Abdominal exam: Present soft and hernia; Absent tenderness, guarding, rebound or rigidity Comment: Possible left inguinal hernia, with pain to palpation to the left inguinal region exam: Present testicular tenderness, scrotal swelling and other (Negative Prehn sign, absent cremasteric reflex on the left, scrotal swelling on the left, and mass/possible inguinal hernia from the left inguinal canal); Absent normal testicular lie Extremities Exam Extremities exam: Present normal inspection Neurological Exam Neurological exam: Present alert and oriented X3 Psychiatric Psychiatric exam: Present normal affect Skin Skin exam: Present warm and dry Medical Decision Making Medical Records Medical records reviewed: Yes I reviewed the patient's medical records. Screening: Per USPSTF and CDC recommendations, given the prevalence of disease in our region, it is our hospital?s policy to screen for HIV and viral Hepatitis for all patients aged 18 and over and those with ongoing risk factors. Renato Inquiry Pt receiving controlled substance: No Renato was queried for this patient: No Vital Signs: 04/11/25 16:52 04/11/25 17:06 04/11/25 17:33 Temperature 98.8 F Temperature Source Temporal Artery Scan Pulse Rate 72 67 Pulse Rate [Right] 80 Respiratory Rate 18 Blood Pressure 188/83 H 139/82 Blood Pressure [Right Arm] 161/85 H Blood Pressure Mean [Right Arm] 110 Blood Pressure Source Blood Pressure Source [Right Arm] Automatic Cuff Blood Pressure Position Blood Pressure Position [Right Arm] Sitting 02 Sat by Pulse Oximetry 97 96 98 Oxygen Delivery Method 04/11/25 19:01 04/11/25 19:31 04/11/25 20:01 Temperature Temperature Source Pulse Rate 72 70 77 Pulse Rate [Right] Respiratory Rate Blood Pressure 168/98 H 139/89 153/73 H Blood Pressure [Right Arm] Blood Pressure Mean [Right Arm] Blood Pressure Source Blood Pressure Source [Right Arm] Blood Pressure Position Blood Pressure Position [Right Arm] 02 Sat by Pulse Oximetry 98 97 95 Oxygen Delivery Method 04/11/25 20:19 Temperature 97.9 F Temperature Source Pulse Rate 73 Pulse Rate [Right] Respiratory Rate 17 Blood Pressure 157/73 H Blood Pressure [Right Arm] Blood Pressure Mean [Right Arm] Blood Pressure Source Automatic Cuff Blood Pressure Source [Right Arm] Blood Pressure Position Sitting Blood Pressure Position [Right Arm] 02 Sat by Pulse Oximetry Oxygen Delivery Method Room Air Lab Data Lab results reviewed: Yes I reviewed the patient's lab results. Lab Results 04/11/25 17:22: WBC 15.5 H, RBC 4.92, Hgb 16.0, Hct 46.5, MCV 94.5 H, MCH 32.5 H , MCHC 34.4, RDW 12.0, Plt Count 212, MPV 9.8, Neut % (Auto) 71.4, Lymph % (Auto) 17.2, [place] % (Auto) 9.3, Eos % (Auto) 1.4, Baso % (Auto) 0.2, Neut # (Auto) 11.1 H, Lymph # (Auto) 2.7, [place] # (Auto) 1.4 H, Eos # (Auto) 0.2, Baso # (Auto) 0.0, Sodium 139, Potassium 4.4, Chloride 102, Carbon Dioxide 27, Anion Gap 14.4, BUN 14, Creatinine 0.80, Estimated Creat Clear 165, Estimated GFR 100, Est GFR ( Amer) 121, Glucose 122 H, Lactate 1.4, Calcium 9.3, Total Bilirubin 0.6, AST 24, ALT 21, Alkaline Phosphatase 73, Total Protein 7.7, Albumin 4.8, Globulin 2.9, Albumin/Globulin Ratio 1.7, Lipase 889 H 04/11/25 17:33: Urine Color Yellow, Urine Appearance Clear, Urine pH 6.0, Ur Specific [place] 1.010, Urine Protein Negative, Urine Glucose (UA) 3+, Urine Ketones Negative, Urine Blood Negative, Urine Nitrate Negative, Urine Bilirubin Negative, Urine Urobilinogen 0.2, Ur Leukocyte Esterase Negative, Urine RBC Occasional, Urine WBC Occasional, Ur Squamous Epith Cells Occasional, Urine Bacteria 1+ 04/11/25 17:22 04/11/25 17:22 Orders (Tests/Meds): ED MEDICATIONS Generic Name Dose Route Start Last Admin Trade Name Freq PRN Reason Stop Dose Admin Acetaminophen 650 mg 04/11/25 19:48 Acetaminophen 325mg Tab PO 05/11/25 19:47 Q6HP PRN Fever or Mild Pain (1-3) Sodium Chloride 1,000 mls @ 50 mls/hr 04/11/25 20:00 Sod Chlor 0.9% 1000ml Bag IV 05/11/25 19:59 .Q20H [facility] Vancomycin HCl 2,250 mg/ 250 mls @ 125 mls/hr 04/11/25 20:00 04/11/25 20:49 Sodium Chloride IV 04/11/25 21:59 125 mls/hr ONCE ONE Administration Miscellaneous 1 each 04/11/25 20:00 Vancomycin Consult Request NOTAPPLIC 05/11/25 19:59 CONSULT PHARMACY [facility] Sodium Chloride 100 ml 04/11/25 19:46 Sodium Chloride 0.9% 100ml Adv IV 04/11/25 19:47 ONCE ONE Discontinued Medications Generic Name Dose Route Start Last Admin Trade Name Freq PRN Reason Stop Dose Admin Piperacillin Sod/Tazobactam 50 mls @ 100 mls/hr 04/11/25 19:13 04/11/25 19:49 Sod 3.375 gm/ Sodium Chloride IV 04/11/25 19:42 100 mls/hr ONCE ONE Administration Iopamidol 70 ml 04/11/25 18:42 04/11/25 18:44 Iopamidol-370 (76%);100ml Bottle IV 04/11/25 18:43 70 ml ONCE ONE Administration Sodium Chloride 10 ml 04/11/25 18:42 04/11/25 18:44 Sodium Chloride 0.9% 10ml Syr (Rad Only) IV 04/11/25 18:43 10 ml ONCE ONE Administration ORDERS Category Date Time Status CT abdomen pelvis w con Stat Cat Scan 04/11/25 17:13 Completed Complete Blood Count Auto Diff Stat Lab 04/11/25 17:22 Completed Comprehensive Metabolic Panel Stat Lab 04/11/25 17:22 Completed Lactic Acid Stat Lab 04/11/25 17:22 Completed Lipase Stat Lab 04/11/25 17:22 Completed Urinalysis and Microscopic Stat Lab 04/11/25 17:33 Completed US Testicular Stat Ultrasound 04/11/25 17:14 Completed Medical Decision Narrative: 54-year-old male presents emergency department with request of primary care doctor concern for strangulated hernia lifting with razor, differential endoscopy not limited to, direct inguinal hernia, indirect inguinal hernia, strangulated/incarcerated hernia, bowel obstruction, malignancy, testicular torsion among others. I discussed this patient's case with the attending physician Dr. Donohue Will obtain basic laboratory studies, lactic acid level, lipase level, UA, CT abdomen pelvis with contrast and testicular ultrasound. For further evaluation/characterization. CBC is noted for mild leukocytosis at 15.5, otherwise unremarkable CBC, leukocytosis could be reactive in the setting of pain. UA unremarkable CMP notable for normal lactic acidosis, elevated lipase at 889 otherwise unremarkable. UA microscopic analysis is unremarkable Reviewed the patient's testicular ultrasound along the corresponding radiologic report, bilateral epididymitis, irregular shaped echogenic area of tissue inferior to the bilateral testicles, could reflect focal inflammatory tissue no torsion. I reviewed the patient's CT and pelvis with contrast along the corresponding radiologic report, soft tissue swelling involving the left perineum with skin thickening in this region there is an ill-defined fluid collection measuring 2.8 x 1.8 cm concerning for developing abscess no soft tissue gas or Hernandez's gangrene. Will start patient on prophylactic 3.375 IV Zosyn. I discussed this patient's case with the on-call hospitalist physician Dr. Grossman at approximately 7:25 PM, he recommends touching base with general surgery prior to admission, also potential urology consult due to the location and nature of the patient's abscess. I discussed this patient's case in depth with Dr. Campoverde the on-call general surgeon at approximately 7:40 PM, he reviewed the patient's images, he is amicable for n.p.o. after midnight, admission to the hospitalist service with IV antibiotics, IV Zosyn will cover the patient at this time for possible left- sided peritoneal abscess. I discussed need for admission with the patient family bedside patient and family are in agreement with current treatment plan/admission plan. Patient documented full code. Closed-loop indication was performed with Dr. Grossman the admitting physician, at approximately 7:48 PM, he is in agreement with the current admission plan/treatment plan for perineal abscess, he would like me to add on MRSA coverage, thus will add on IV vancomycin pharmacy to dose. Critical Care Critical Care Time Critical Care Time: No
--- OUTSIDE RECORDS SUMMARY | 2025-04-11 17:09 | XMS_ITS | Clinical Summary ---
[facility] Address [address] [place] [id number] Care Team Providers Care Business Mgr Name Role Phone Awais Ace MD Primary Care Provider [phone] Social History Tobacco Use Types Packs/Day Years Used Date Smoking Tobacco: Never Assessed Abuse Screen Answer Date Recorded Unsafe at Home or Work/School Not on file Feels Threatened by Someone? Not on file Does Anyone Keep You from Co ntacting Others or Doint Things Outside the Home? Not on file 05/07/2023 Physical Sign of Abuse Present Not on file 1 Housing Stability Answer Date Recorded Current Living Arrangements Not on file 04/25 Potentially Unsafe Housing Conditions Not on tejas e 05/07/2023 Family and Community Support Answer Wil e Recorded Help with Day-to-Day Activities Not on file 05/07/2023 Lonely or Isolated Not on file 05/07/2023 Employment Answer Date Recorded Do you want help finding or keeping work or a sophia b? Not on file 05/07/2023 Disabilities Answer Date Recorded Concentrating, Remembering, or Making Decisions Difficulty Not on file 05/07/2023 Doing Errands Independently Difficulty Not on fi le 05/07/2023 Education Answer Date Recorded Help with school or training? Not on file Preferred Language Not on file 05/07/2023 Sex and Gender Information Value Date Recorded Sex Assigned at Not on file Legal Sex Male 10:28 AM EST Gender Identity Not on file Sexual Orientation Not on file Plan of Treatment Health Maintenance Due Date Last Done Comments ANNUAL PHYSICAL 1968 HEPATITIS C SCREENING 1968 TDAP/TD VACCINES (1 - Tdap) 1987 COLOGUARD 2013 COLON CANCER SCREENING 5 YEAR SIGMOIDOSCOPY 2013 COLONOSCOPY [address] CANCER SCREENING 2013 [address] COLONOGRAPHY 2013 FECAL OCCULT BLOOD TEST 2013 FIT Testing (1 year) 2013 Pneumococcal Vaccine 50+ (1 of 1 - PCV) 2018 ZOSTER VACCINE (1 of 2) 2018 COVID-19 Vaccine (2 - season) 03/26/202501/2021 INFLUENZA VACCINE 04/25/2025 Insurance [facility] PPO Care Teams Business Mgr Relationship Specialty Start Date End Date Awais Ace MD [address] [place] [address] PCP - General Family Medicine 09/05/21
--- OUTSIDE RECORDS SUMMARY | 2025-04-11 17:09 | XMS_ITS | Patient Health Record ---
Author Organization [facility] Address [address] [place] [id number] Care Team Providers Care Tank Processor Name Role Phone Steff Aceory Primary Care Provider Tano Grossman Unavailable [phone] Allergies No Known Allergies Results Component Value Reference Range Notes P-Comprehensive Metabolic Pa alex (CMP) Reviewed date:12/08/2024 01:11:50 PM Interpretation:gluc 129 Performing Lab: Notes/Report: Test performed by [facility] , [address], [place] [address] Everette Dee MD, Workforce Development Program Director CLIA: [id number] Sodium 139 135-145 mmol/L Potassium 5.2 3.5-5.3 [...] Interpretation:7.3 Performing Lab: Notes/Report: Test performed by [facility] [address] , [address], [place] [address] Everette Dee MD, Workforce Development Program Director CLIA: [id number] Hemoglobin A1C 7.3 <5.7 % The following HbA1c ranges recommended by the [place] [employer] (ADA) may be used as an aid in the diagnosis of diabetes mellitus. HbA1c Suggested Diagnosis >=6.5% Diabetic 5.7% - 6.4% Pre-Diabetic <5.7% Non-Diabetic P-Microalbumin/Creatinine, R andom Urine Sample Reviewed date:12/08/2024 01:11:50 PM Interpretation:Normal Performing Lab: Notes/Report: Test performed by [facility] [address] [place] [address] , [address], [place] [address] Everette Dee MD, Workforce Development Program Director CLIA: [id number] Albumin/Creatinine Ratio, Urine <5.08 0-30 ug/m g Microalbumin, Urine, Random <0.3 Creatinine, Urine 59.0 Estimated Average Glucose Reviewed date:12/08/2024 01:11:50 PM Interpretation:163 Performing Lab: Notes/Report: Test performed by [facility] [address] [place] [address] , [address], [place] [address] Everette Dee MD, Workforce Development Program Director CLIA: [id number] Estimated Average Glucose (eAG) 163 Estimated Average Glucose (eAG) is calculated using the equation eAG = (28.7 x HbA1c) - 46.7 based on the guidelines established by the ADA. If the patient has certain diseases including kidney disease, sickle cell anemia, thalassemia, or is taking medications such as dapsone, erythropoietin, or iron, eAG should not be evaluated. Glycohemoglobin A1c (in hous e) Reviewed date:07/25/2024 09:50:04 AM Interpretation:6.7% Performing Lab: Notes/Report: 6.7% glycohemoglobin 6.7% 5 - 6.5 % P-Comprehensive Metabolic Pa alex (CMP) Reviewed date:07/25/2024 09:50:04 AM Interpretation:gluc 121 Performing Lab: Notes/Report: Test performed by [facility], [address], [place] [address] Everette Dee MD, Workforce Development Program Director CLIA: [id number] Sodium 139 135-145 mmol/L Potassium 5.2 3.5-5.3 [...] 36 Performing Lab: Notes/Report: Test performed by [facility], [address] , [address], [place] [address] Everette Dee MD, Workforce Development Program Director CLIA: [id number] Cholesterol 149 <200 mg/dL Triglycerides 184 <150 [...] Interpretation:Normal Performing Lab: Notes/Report: Test performed by [facility], [address] , [facility], [place] [address] Everette Dee MD, Workforce Development Program Director CLIA: [id number] Albumin/Creatinine Ratio, Urine <10.7 0-30 ug/m g Microalbumin, Urine, Random <0.3 Creatinine, Urine 27.9 Medications Medication SIG (Take, Route, Frequency, Duration) [...] DAY with a meal; Duration: 90 Active Immunizations Vaccine Route Administration Date Status Comme nts COVID 19 Catrina Unknown 10/30/2020 Administered COVID 19 Moderna Unknown 07/02/2021 Administered Hepatitis A (adult) IM Intramuscular 07/31/2013 Administer ed Tetanus Tdap-Adacel (over 7yrs) IM Intramuscular 07/31/2013 Administered Tetanus Tdap-Adacel (over 7yrs) IM Intramuscular 07/24/2024 Administered Typhoid vaccine IM Intramuscular 08/03/2013 Administered xFlu shot-36 months and older IM Intramuscular 07/07/2008 Administered xFluzone (6mos and older)-trivalent IM Intramuscular 07/31/2013 Administered Problems Problem Type SNOMED Code ICD Code Onset Dates Problem Status W/U Status Risk Notes Problem Hyperlipidemia (29579646) Hyperlipidemia (272.4) Active confirmed Problem Vitamin B12 deficiency (922647650) Vitamin B12 deficiency (E53.8) Active confirmed Problem Bilateral caroti d bruits (R09.89) Active confirmed Problem Hyperlipidemia (22572314) Hyperlipidemia, unspecified (E78.5) Active confirmed Problem Xanthelasma of right lower eyelid (591628802066527) Xanthelasma of right lower eyelid (H02.62) Active confirmed Problem Abscess of skin and/or subcutaneous tissue caused by ingrown hair (disorder) (930225602) Pilonidal cyst with abscess (L05.01) Active confirmed Problem Hyperlipidemia due to type 2 diabetes mellitus (disorder) (426286937181045) Hyperlipidemia associated with type 2 diabetes mellitus (E11.69) Active confirmed Problem Hyperlipidemia (20584280) Hyperlipidemia, unspecified (E78.5) Active confirmed Problem Chronic fatigue syndrome (51902623) Chronic fatigue (R53.82) Active confirmed Problem Neoplasm of skin of neck (140289798) 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 confirmed Problem Paresthesia (finding) (06326806) Paresthesias (R20.2) Active confirmed Problem Body mass index 30.00 to 34.99 (341707619487847) BMI 31.0-31.9,adult (Z68.31) Active confirmed Problem Type II diabetes mellitus without complication (392921828) Type 2 diabetes mellitus without complication, without long-term current use of insulin (E11.9) Active confirmed Problem Sebaceous cyst of right eyelid (0732044607415453 1) Sebaceous cyst of right eyelid (H02.823) Active confirmed Problem Benign prostatic hypertrophy without outflow obstruction (196956761) Benign prostatic hyperplasia without lower urinary tract symptoms (N40.0) Active confirmed Problem 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 Vital Signs Heart Rate 70 /min 04/11/2025 Blood pressure diastolic 80 mm Hg 04/11/2025 Height 74.50 in 04/11/2025 Blood pressure systolic 130 mm Hg 04/11/2025 Weight 249.0 lbs 04/11/2025 BMI 31.54 kg/m2 04/11/2025 Encounters Encounter Location Date Provider Diagnosis [facility] [address] [place], [place] [phone] 07/24/2024 Steff Ace Hyperlipidemia associated with type 2 diabetes mellitus E11.69 ; Type 2 diabetes mellitus without complication, without long-term current use of insulin E11.9 and Encounter for immunization Z23 [facility] [address] [place], [place] [id number] 11/13/2024 Steff Ace Type 2 diabetes claire itus without complication, without long-term current use of insulin E11.9 ; Hyperlipidemia, unspecified E78.5 ; BMI 31.0-31.9,adult Z68.31 and Xanthelasma of right lower eyelid H02.62 [facility] [address] [facility] [address] [place], [place] [phone] 04/11/2025 [place] Left inguinal pain R10.32 [facility] [address] [place], [place] [phone] 07/25/2024 Steff Ace [facility] [address] [place], [place] [phone] 12/08/2024 Steff Ace Assessments Encounter Date Diagnosis (ICD Code) Assessment Notes Treatment Notes Treatment Clinical Notes Section Notes 07/24/2024 Hyperlipidemia associated with type 2 diabetes mellitus (ICD-10 - E11.69) 07/24/2024 Type 2 diabetes mellitus without complication, without long-term current use of insulin (ICD-10 - E11.9) 11/13/2024 Hyperlipidemia, unspecified (ICD-10 - E78.5) 11/13/2024 Type 2 diabetes mellitus without complication, without long-term current use of insulin (ICD-10 - E11.9) 04/11/2025 Left inguinal pain (ICD-10 - R10.32) 07/24/2024 Encounter for immunization (ICD-10 - Z23) 11/13/2024 BMI 31.0-31.9,adult (ICD-10 - Z68.31) 11/13/2024 Xanthelasma of right lower eyelid (ICD-10 - H02.62) Plan Of Treatment Next Appt Details Provider Name:Steff [place] er, 06/18/2025 10:00:00 AM, [address], [address], [place], [phone], Insurance Providers Payer Name Payer Address Payer Phone Subscriber Number Group Number Insured Name Patient Relationship to Insured Coverage Start Date Coverage End Date [employer] [address] [place] [address] [id number] [place] HERN[place]NDEZ Self - patient is the insured Medications Administered Medication Instructions Date of Administration Dosage Notes B-12 12/17/2020 1 mL Medical (General) History Medical History History ICD Code type 2 diabetes hyperlipidemia Vitamin B 12 deficiency Surgical History Surgery Date(Month/Year) gallbladder 2002 Hemorrhoidectomy- Dr Steven Fernando [address] Quinn
--- NOTE | 2025-04-11 17:13 | CT_ITS ---
PROCEDURE INFORMATION: Exam: CT Abdomen And Pelvis With Contrast Exam date and time: 04/11/2025 6:47 PM Age: 54 years old Clinical indication: Other: Left groin pain; Additional info: Concern for left inguinal hernia/left groin pain TECHNIQUE: Imaging protocol: Computed tomography of the abdomen and pelvis with contrast. Radiation optimization: All CT scans at this facility use at least one of these dose optimization techniques: automated exposure control; mA and/or kV adjustment per patient size (includes targeted exams where dose is matched to clinical indication); or iterative reconstruction. Contrast material: ISOVUE; Contrast volume: 75 ml; Contrast route: IV; COMPARISON: US TESTICULAR 04/11/2025 5:41 PM FINDINGS: Liver: Fatty liver Gallbladder and biliary ducts: Cholecystectomy Pancreas: Normal. No ductal dilation. Spleen: Normal. No splenomegaly. Adrenal glands: Normal. No mass. Kidneys and ureters: Normal. No hydronephrosis. Stomach and bowel: Unremarkable. No obstruction. No mucosal thickening. Appendix: No evidence of appendicitis. Intraperitoneal space: Unremarkable. No free air. No significant fluid collection. Vasculature: Unremarkable. No abdominal aortic aneurysm. Lymph nodes: Unremarkable. No enlarged lymph nodes. Urinary bladder: Unremarkable as visualized. Reproductive: Unremarkable as visualized. Bones/joints: Unremarkable. No acute fracture. Soft tissues: Soft tissue swelling involving the left perineum with skin thickening. In this region there is a ill-defined fluid collection measuring 2.8 x 1.8 cm concerning for developing abscess. No soft tissue gas or Hernandez's gangrene IMPRESSION: Soft tissue swelling involving the left perineum with skin thickening. In this region there is an ill-defined fluid collection measuring 2.8 x 1.8 cm concerning for developing abscess. No soft tissue gas or Hernandez's gangrene
--- NOTE | 2025-04-11 17:14 | US_ITS ---
PROCEDURE INFORMATION: Exam: US Scrotum Exam date and time: 04/11/2025 5:41 PM Age: 54 years old Clinical indication: Scrotum pain; Additional info: Rule out torsion -- lt testicular pain TECHNIQUE: Imaging protocol: Real-time ultrasound of the scrotum and contents with color Doppler and image documentation. COMPARISON: No relevant prior studies available. FINDINGS: Right testicle: No mass. Normal color Doppler and arterial waveforms. No torsion. 3.3 x 1.7 x 3.4 cm. Left testicle: No mass. Normal color Doppler and arterial waveforms. No torsion. 3.1 x 1.6 x 2.6 cm. Epididymides: . Bilateral epididymal inflammation and increased echogenicity. Scrotum/soft tissues: No hydroceles. Irregularly shaped echogenic areas of tissue inferior to bilateral testicles could reflect focal inflammatory tissue. IMPRESSION: Bilateral epididymitis. Irregularly shaped echogenic areas of tissue inferior to bilateral testicles could reflect focal inflammatory tissue. No torsion
--- NOTE | 2025-04-11 17:14 | PC.NURSE ---
I notified radiology we would need a testicular US to rule out torsion.
[2025-04-11 17:31] LABS: Hematocrit 46.5 % (42.0-52.0); Hemoglobin 16.0 g/dL (14.1-18.0); Immature Granulocytes % 0.5 %; Mean Corpuscular HGB Conc 34.4 g/dL (31.8-35.4); Mean Corpuscular Hemoglobin 32.5 pg (27.0-31.2); Mean Corpuscular Volume 94.5 fl (80-94); Nucleated Red Blood Cells % 0 %; Platelet Count 212 K/mm3 (142-424); Red Blood Count 4.92 M/mm3 (4.60-6.20); Red Cell Distribution Width-SD 42.5 fL; White Blood Count 15.5 K/mm3 (4.8-10.8)
[2025-04-11 17:39] LABS: Microscopic, Urine URINE MICROSCOPIC (MICROSCOPIC)
[2025-04-11 17:42] LABS: Bilirubin,Urine Negative (Negative); Color,Urine YELLOW (Yellow); Glucose,Urine (UA) 3+ (Negative); Ketones,Urine Negative (Negative); Leukocyte Esterase,Urine Negative (Negative); PH,Urine 6.0 (5.0-8.5); Protein,Urine Negative (Negative); Specific Gravity, Urine 1.010 (1.005-1.030); Urobilinogen,Urine 0.2 EU/dl (0.2)
[2025-04-11 18:00] LABS: Albumin Level 4.8 g/dl (3.5-5.0); Chloride 102 mmol/L (98-107); Potassium 4.4 mmoL/L (3.5-5.1); Sodium 139 mmol/L (136-145)
[2025-04-11 18:03] LABS: Alanine Aminotransferase 21 U/L (12-78); Albumin/Globulin Ratio 1.7 (1.1-1.8); Alkaline Phosphatase 73 U/L (38-126); Anion Gap 14.4 mEq/L (5-15); Aspartate Amino Transferase 24 U/L (17-59); Bilirubin,Total 0.6 mg/dl (0.2-1.3); Blood Urea Nitrogen 14 mg/dl (9-20); Carbon Dioxide 27 mmol/L (22.0-30.0); Creatinine Clearance Estimated 165 mL/min (50-200); Creatinine,Serum 0.80 mg/dl (0.66-1.25); Estimated Glomerular Filt Rate 100 ml/min (>60); GFR (African American) 121 ML/MIN (>60); Globulin 2.9 g/dL (1.3-3.2); Total Protein,Serum 7.7 g/dl (6.3-8.2)
[2025-04-11 18:04] LABS: Calcium 9.3 mg/dl (8.4-10.2); Glucose 122 mg/dl (74-100)
[2025-04-11 18:14] LABS: Lipase 889 U/L (23-300)
[2025-04-11 18:34] LABS: Bacteria,Urine 1+ /lpf; RBC,Urine Occasional #/hpf (0-3); Squamous Epithelial Cell,Urine Occasional #/hpf (0-5); WBC,Urine Occasional #/hpf (0-3)
[2025-04-11] MEDS: IOPAMIDOL-370 (76%);100ML BOTTLE 70 ML IV (18:44)
[2025-04-11] MEDS: SODIUM CHLORIDE 0.9% 10ML SYR (RAD ONLY) 10 ML IV (18:44)
[2025-04-11] MEDS: PIPERCILLIN/TAZO 3.375 GM in 0.9 % SODIUM CHLORIDE 50 ML IV (19:49)
[2025-04-11] MEDS: VANCOMYCIN HCL 2,250 MG in 0.9 % SODIUM CHLORIDE 250 ML 125 MG IV (20:49)
[2025-04-11] MEDS: 0.9 % SODIUM CHLORIDE 1000ML 1,000 ML 50 ML IV (22:54)
[2025-04-12] VITALS (15 sets, daily range): BP systolic 109–159; BP diastolic 67–91; PULSE 62–72; RESP 14–20; TEMP 36.1–37.1; O2SAT 92–97; BMI 31.9
--- NOTE | 2025-04-12 07:04 | EXP.SURG.CON ---
History of Present Illness *Admission Date: 04/11/25 *Reason for visit:: Perineal abscess *History of present illness: This is a 54-year-old gentleman seen in consultation after evaluation emergency department for increasing left groin pain. Evaluation included a CT scan that revealed evidence consistent with left margin perineal abscess. [facility] Disclaimer: The information contained in this section may have been updated after the patient was seen, as this information can be updated by other users. Medical History Smoker Diabetes FH: cholecystectomy Surgical History (Updated 04/11/25 @ 22:31 by Dylon Denise RN) H/O hemorrhoidectomy Social History (Updated 04/11/25 @ 21:42 by SHANTE Benavides) Smoking Status: Current every day smoker alcohol intake: never current occupational status: other Travel in the last 8 weeks?: None Have you lived/traveled outside US in past 30 days?: No Contact w/someone who lives/traveled outside US past 30 days?: No Exposure to someone with infectious disease in past 14 days?: No Do you have a fever (greater than 100.4 F or 38 C)?: No Have you tested positive for COVID-19?: No Exposed to someone with COVID-19 in past 14 days?: No Do you have a sore throat?: No Do you have a cough?: No Do you have any weakness?: No Do you have any diarrhea?: No Are you experiencing any unusual bleeding?: No Do you have any muscle aches/pain?: No Do you have any abdominal pain?: No Are you experiencing loss of taste or smell?: No Review of Systems Review of Systems Review of systems:: pertinent systems reviewed and negative unless documented below *Genitourinary Genitourinary: Reports as per [facility] Meds Home Medications and Allergies Home Medications ?Medication ?Instructions ?Recorded ?Confirmed ?Type dapagliflozin propanediol 10 mg 10 mg PO DAILY 04/11/25 04/11/25 History tablet (Farxiga) metformin 850 mg tablet 850 mg PO DAILY 04/11/25 04/11/25 History New Prescriptions to Start Prescriptions: Allergies Allergy/AdvReac Type Severity Reaction Status Date / Time No Known Allergies Allergy Verified 01/14/18 10:39 Exam (Inpt) Vital signs and Labs for Last 24 Hours: Temp Pulse Resp BP Pulse Ox O2 Del Method 98.7 F 65 16 145/80 H 95 Room Air 04/12/25 04:00 04/12/25 04:00 04/12/25 04:00 04/12/25 04:00 04/12/25 04:00 04/12/25 05:00 Laboratory Results - last 24 hr 04/11/25 17:22: WBC 15.5 H, RBC 4.92, Hgb 16.0, Hct 46.5, MCV 94.5 H, MCH 32.5 H, MCHC 34.4, RDW 12.0, Plt Count 212, MPV 9.8, Neut % (Auto) 71.4, Lymph % (Auto) 17.2, [place] % (Auto) 9.3, Eos % (Auto) 1.4, Baso % (Auto) 0.2, Neut # (Auto) 11.1 H, Lymph # (Auto) 2.7, [place] # (Auto) 1.4 H, Eos # (Auto) 0.2, Baso # (Auto) 0.0, Sodium 139, Potassium 4.4, Chloride 102, Carbon Dioxide 27, Anion Gap 14.4, BUN 14, Creatinine 0.80, Estimated Creat Clear 165, Estimated GFR 100, Est GFR ( Amer) 121, Glucose 122 H, Lactate 1.4, Calcium 9.3, Total Bilirubin 0.6, AST 24, ALT 21, Alkaline Phosphatase 73, Total Protein 7.7, Albumin 4.8, Globulin 2.9, Albumin/Globulin Ratio 1.7, Lipase 889 H 04/11/25 17:33: Urine Color Yellow, Urine Appearance Clear, Urine pH 6.0, Ur Specific [place] 1.010, Urine Protein Negative, Urine Glucose (UA) 3+, Urine Ketones Negative, Urine Blood Negative, Urine Nitrate Negative, Urine Bilirubin Negative, Urine Urobilinogen 0.2, Ur Leukocyte Esterase Negative, Urine RBC Occasional, Urine WBC Occasional, Ur Squamous Epith Cells Occasional, Urine Bacteria 1+ I & O for Labs for Last 24 Hours: Intake & Output 04/09/25 04/10/25 04/11/25 04/12/25 11:59 11:59 11:59 11:59 Intake Total 500 / 500 Output Total 350 / 350 Balance 150 / 150 Weight 248 lb 14.4 oz Constitutional: no acute distress Respiratory: Absent respiratory distress Cardiac: Absent Tachycardia GI: Present soft Comment:: Inflammation/induration along left perineal margin with projection to the scrotum Results Labs 04/11/25 17:22 04/11/25 17:22 Labs: Laboratory Results - last 24 hr 04/11/25 17:22: WBC 15.5 H, RBC 4.92, Hgb 16.0, Hct 46.5, MCV 94.5 H, MCH 32.5 H, MCHC 34.4, RDW 12.0, Plt Count 212, MPV 9.8, Neut % (Auto) 71.4, Lymph % (Auto) 17.2, [place] % (Auto) 9.3, Eos % (Auto) 1.4, Baso % (Auto) 0.2, Neut # (Auto) 11.1 H, Lymph # (Auto) 2.7, [place] # (Auto) 1.4 H, Eos # (Auto) 0.2, Baso # (Auto) 0.0, Sodium 139, Potassium 4.4, Chloride 102, Carbon Dioxide 27, Anion Gap 14.4, BUN 14, Creatinine 0.80, Estimated Creat Clear 165, Estimated GFR 100, Est GFR ( Amer) 121, Glucose 122 H, Lactate 1.4, Calcium 9.3, Total Bilirubin 0.6, AST 24, ALT 21, Alkaline Phosphatase 73, Total Protein 7.7, Albumin 4.8, Globulin 2.9, Albumin/Globulin Ratio 1.7, Lipase 889 H 04/11/25 17:33: Urine Color Yellow, Urine Appearance Clear, Urine pH 6.0, Ur Specific [place] 1.010, Urine Protein Negative, Urine Glucose (UA) 3+, Urine Ketones Negative, Urine Blood Negative, Urine Nitrate Negative, Urine Bilirubin Negative, Urine Urobilinogen 0.2, Ur Leukocyte Esterase Negative, Urine RBC Occasional, Urine WBC Occasional, Ur Squamous Epith Cells Occasional, Urine Bacteria 1+ Assessment and Plan *Assessment and plan (1) Cutaneous abscess of perineum: Status: Acute Category: Medical Code(s): L02.215 - Cutaneous abscess of perineum Plan: Continue overall management as per primary service Incision and drainage scheduled for this AM I have discussed the risks and benefits including, but not limited to: Bleeding Infection Damage to surrounding tissue Inherent risks of sedation The patient agrees to proceed.
[2025-04-12 08:08] LABS: POC Glucose,Bedside 129 gm/dL (70-110)
--- NOTE | 2025-04-12 08:11 | P.PNANES_ITS ---
[facility] Disclaimer: The information contained in this section may have been updated after the patient was seen, as this information can be updated by other users. Medical History Smoker Diabetes FH: cholecystectomy Surgical History (Updated 04/11/25 @ 22:31 by Dylon Denise RN) H/O hemorrhoidectomy Social History (Updated 04/11/25 @ 21:42 by SHANTE Benavides) Smoking Status: Current every day smoker alcohol intake: never substance use type: denies use current occupational status: other Travel in the last 8 weeks?: None [facility] Anesthesia Checklist Patient Identification Patient Identification: Arm Band and Verbal (Name & ) Structural Data Admitted From: Inpatient Planned Operative Procedure/s: I&D Perineal abscess Consent for Planned Operative Procedure(s) Verified: Yes Verified Documents: Surgical Consent NPO Status Verified Time NPO: 00:00 Chart Verification Results Verified: CBC and BMP Additional verifications Fingerstick Blood Glucose: 129 Anesthesia Reactions: No Airway Assessment Mallampati Score:: Class II C-Spine Mobility Assessed: Yes TMJ Mobility Assessed: Yes Dentition: Good Dentition Neurological Assessment Level of Consciousness: Awake, Alert and Appropriate Hx Seizures: No Numbness or tingling in extremities: No Anesthesia Plan Anesthesia Risk discussed: Yes Anesthesia Plan: Verified ASA Class: II Anesthesia Type: General
[2025-04-12] MEDS: LIDOCAINE 1% 20ML MDV 20 ML (09:33)
[2025-04-12] MEDS: METRONIDAZ/SOD CHL 500 MG/100 ML PIGGYBACK 100 MG IV (09:37)
--- NOTE | 2025-04-12 09:43 | P.OP_ITS ---
Date of procedure: 04/12/25 Pre-op Diagnosis:: Left perineal abscess Post-op Diagnosis:: Same Procedure performed:: Incision and drainage of complex left perineal abscess Surgeon:: Jin Campoverde MD ASSEMBLY LINE DRIVER:: Alexandro Butler Anesthesia: local and LMA Estimated blood loss (mL): 5 Operative findings:: Deep complex pocket of purulence projecting from the left perineal space to the scrotal/groin margin anteriorly Operative note:: After informed consent was obtained the patient was taken to the operating room and placed in the supine position. General anesthesia with laryngeal mask airway was achieved. He was transferred to a modified lithotomy position. His perineal region was prepped and draped in a sterile fashion. An elliptical incision was made around the central portion of the palpable abscess cavity. A pocket of purulent fluid was evacuated. Fluid was obtained for Gram stain/culture. The cavity tracked anteriorly/medially to the scrotal/groin margin. Electrocautery was utilized to achieve hemostasis. The wound was packed with Kerlix that was then infiltrated with 1% lidocaine. Dressings were applied and the patient was transferred to recovery in stable condition after removal of his laryngeal mask airway. Condition: stable Disposition: PACU Specimens:: Fluid for Gram stain/culture Complications:: No immediate
--- NOTE | 2025-04-12 09:57 | EXP.ANES.I ---
[facility] Anesthesia Record Part I Anesthesia Record I Intake, IV Amount: 500 Hydration: Adequate Estimated blood loss (mL): 0 Urine output (mL): 0 Blood Products used (#): none Blood Pressure: 109/73 SaO2: 93 Pulse Rate: 69 Airway Patency: Patent Respiratory Rate: 14 Temperature: 97.0 F Patient is:: Nasal O2, Oral/Nasal airway and Somnolent Stable to PACU at:: 09:50
[2025-04-12 10:12] LABS: POC Glucose,Bedside 130 gm/dL (70-110)
[2025-04-12] MEDS: ACETAMINOPHEN 325MG TAB 650 MG PO (10:39)
--- OUTSIDE RECORDS SUMMARY | 2025-04-12 11:50 | XMS_ITS | Clinical Summary ---
[facility] Address [address] [place] [id number] Care Team Providers Care Boy'S Adviser Name Role Phone Awais Ace MD Primary Care Provider [phone] Social History Tobacco Use Types Packs/Day Years [...] - season) 03/26/202501/2021 INFLUENZA VACCINE 04/25/2025 Insurance [facility] PPO Care Teams Boy'S Adviser Relationship Specialty Start Date End Date Awais Ace MD [address] [place] [id number] PCP - General Family Medicine 09/05/21
--- OUTSIDE RECORDS SUMMARY | 2025-04-12 11:50 | XMS_ITS | Patient Health Record ---
Author Organization [facility] Address [address] [facility] [address] [place] [id number] Care Team Providers Care Diesel Technician Name Role Phone Steff Aceory Primary Care Provider Tano Grossman Unavailable [phone] Allergies No Known Allergies Results Component Value Reference Range Notes P-Comprehensive Metabolic Pa alex (CMP) Reviewed date:12/08/2024 01:11:50 PM Interpretation:gluc 129 Performing Lab: Notes/Report: Test performed by [facility] , [address], [place] [address] Everette Dee MD, Public Opinion Survey Taker CLIA: [id number] Sodium 139 135-145 mmol/L Potassium 5.2 3.5-5.3 [...] Interpretation:7.3 Performing Lab: Notes/Report: Test performed by [facility] [address] , [address], [place] [address] Everette Dee MD, Public Opinion Survey Taker CLIA: [id number] Hemoglobin A1C 7.3 <5.7 % The following HbA1c ranges recommended by the [place] [employer] (ADA) may be used as an aid in the diagnosis of diabetes mellitus. HbA1c Suggested Diagnosis >=6.5% Diabetic 5.7% - 6.4% Pre-Diabetic <5.7% Non-Diabetic P-Microalbumin/Creatinine, R andom Urine Sample Reviewed date:12/08/2024 01:11:50 PM Interpretation:Normal Performing Lab: Notes/Report: Test performed by [facility] [address] [place] [address] , [address], [place] [address] Everette Dee MD, Public Opinion Survey Taker CLIA: [id number] Albumin/Creatinine Ratio, Urine <5.08 0-30 ug/m g Microalbumin, Urine, Random <0.3 Creatinine, Urine 59.0 Estimated Average Glucose Reviewed date:12/08/2024 01:11:50 PM Interpretation:163 Performing Lab: Notes/Report: Test performed by [facility] [address] [place] [address] , [address], [place] [address] Everette Dee MD, Public Opinion Survey Taker CLIA: [id number] Estimated Average Glucose (eAG) 163 Estimated Average [...] Lab: Notes/Report: Test performed by [facility], [address], [place] [address] Everette Dee MD, Public Opinion Survey Taker CLIA: [id number] Sodium 139 135-145 mmol/L Potassium 5.2 3.5-5.3 [...] 36 Performing Lab: Notes/Report: Test performed by [facility], [address] , [address], [place] [address] Everette Dee MD, Public Opinion Survey Taker CLIA: [id number] Cholesterol 149 <200 mg/dL Triglycerides 184 <150 [...] Interpretation:Normal Performing Lab: Notes/Report: Test performed by [facility], [address] , [facility], [place] [address] Everette Dee MD, Public Opinion Survey Taker CLIA: [id number] Albumin/Creatinine Ratio, Urine <10.7 0-30 ug/m g [...] Vaccine Route Administration Date Status Comme nts xFluzone (6mos and older)-trivalent IM Intramuscular 07/31/2013 Administered xFlu shot-36 months and older IM Intramuscular 07/07/2008 Administered Typhoid vaccine IM Intramuscular 08/03/2013 Administered Tetanus Tdap-Adacel (over 7yrs) IM Intramuscular 07/31/2013 Administered Tetanus Tdap-Adacel (over 7yrs) IM Intramuscular 07/24/2024 Administered Hepatitis A (adult) IM Intramuscular 07/31/2013 Administer ed COVID 19 Moderna Unknown 07/02/2021 Administered COVID 19 Catrina Unknown 10/30/2020 Administered Problems Problem Type SNOMED Code ICD Code Onset Dates Problem Status W/U Status Risk Notes Problem Hyperlipidemia (04416005) Hyperlipidemia (272.4) Active confirmed Problem Vitamin B12 deficiency (229927938) Vitamin B12 deficiency (E53.8) Active confirmed Problem Bilateral caroti d bruits (R09.89) Active confirmed Problem Hyperlipidemia (62591654) Hyperlipidemia, unspecified (E78.5) Active confirmed Problem Xanthelasma of right lower eyelid (972532555353161) Xanthelasma of right lower eyelid (H02.62) Active confirmed Problem Abscess of skin and/or subcutaneous tissue caused by ingrown hair (disorder) (186392597) Pilonidal cyst with abscess (L05.01) Active confirmed Problem Hyperlipidemia due to type 2 diabetes mellitus (disorder) (670568136097213) Hyperlipidemia associated with type 2 diabetes mellitus (E11.69) Active confirmed Problem Hyperlipidemia (27330528) Hyperlipidemia, unspecified (E78.5) Active confirmed Problem Chronic fatigue syndrome (01364252) Chronic fatigue (R53.82) Active confirmed Problem Neoplasm of skin of neck (393239304) 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 confirmed Problem Paresthesia (finding) (26852039) Paresthesias (R20.2) Active confirmed Problem Body mass index 30.00 to 34.99 (089980577844758) BMI 31.0-31.9,adult (Z68.31) Active confirmed Problem Type II diabetes mellitus without complication (566616352) Type 2 diabetes mellitus without complication, without long-term current use of insulin (E11.9) Active confirmed Problem Sebaceous cyst of right eyelid (2065926398775581 1) Sebaceous cyst of right eyelid (H02.823) Active confirmed Problem Benign prostatic hypertrophy without outflow obstruction (357751950) Benign prostatic hyperplasia without lower urinary tract symptoms (N40.0) Active confirmed Problem 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 Vital Signs Heart Rate 70 /min 04/11/2025 Blood pressure diastolic 80 mm Hg 04/11/2025 Height 74.50 in 04/11/2025 Blood pressure systolic 130 mm Hg 04/11/2025 Weight 249.0 lbs 04/11/2025 BMI 31.54 kg/m2 04/11/2025 Encounters Encounter Location Date Provider Diagnosis [facility] [address] [place], [place] [phone] 07/24/2024 Steff Ace Hyperlipidemia associated with type 2 diabetes mellitus E11.69 ; Type 2 diabetes mellitus without complication, without long-term current use of insulin E11.9 and Encounter for immunization Z23 [facility] [address] [place], [place] [id number] 11/13/2024 Steff Ace Type 2 diabetes claire itus without complication, without long-term current use of insulin E11.9 ; Hyperlipidemia, unspecified E78.5 ; BMI 31.0-31.9,adult Z68.31 and Xanthelasma of right lower eyelid H02.62 [facility] [address] [facility] [address] [place], [place] [id number] 04/11/2025 Tano Chappells Left inguinal pain R10.32 [facility] [address] [place], [place] [id number] 07/25/2024 Steff Ace [facility] [address] [place], [place] [phone] 12/08/2024 Steff Ace Assessments Encounter Date Diagnosis [...] (ICD-10 - R10.32) Spoke to Dr. Campoverde regeneration operator for general surgery who recommends evaluation in the ER. Spoke to Dr. Donohue in the ER. She will see patient and evaluation for treatment. 11/13/2024 BMI 31.0-31.9,adult (ICD-10 - Z68.31) 07/24/2024 Encounter for immunization (ICD-10 - Z23) 11/13/2024 Xanthelasma of right lower eyelid (ICD-10 - H02.62) Plan Of Treatment Next Appt Details Provider Name:Steff Washington er, 06/18/2025 10:00:00 AM, [address], [address], [place], [id number], Insurance Providers Payer Name Payer Address Payer Phone Subscriber Number Group Number Insured Name Patient Relationship to Insured Coverage Start Date Coverage End Date [employer] [address] [place] [address] [phone] [id number] [facility] [place] HERN[place]NDE[place] Self - patient is the insured Medications Administered Medication Instructions Date of Administration Dosage Notes B-12 12/17/2020 1 mL Medical (General) History Medical History History ICD Code type 2 diabetes hyperlipidemia Vitamin B 12 deficiency Surgical History Surgery Date(Month/Year) gallbladder 2002 Hemorrhoidectomy- Dr Steven Fernando [address] Quinn
--- NOTE | 2025-04-12 12:41 | P.PNANES_ITS ---
[facility] Anesthesia Record Part II Anesthesia Record Part II Discharge Time: 10:20 Destination: Medical Surgical Department PACU nurse assessment reviewed?: Yes Patient Condition:: Good Anesthesia Complications:: None Swallowing reflex intact?: Yes Airway Patency: Patent Cyanosis?: No Blood Pressure: 154/84 SaO2: 95 Respiratory Rate: 14 Pulse Rate: 71 Temperature: 97 F Mental Status: Alert & Oriented Pain level:: 0 Nausea and/or vomitting:: None Intake, IV Amount: 0 Hydration: Adequate
--- NOTE | 2025-04-12 13:03 | EXP.HPDC ---
General Admission date:: 04/11/25 Discharge date: 04/12/25 *Admission Date: 04/11/25 *Chief complaint: groin pain *History of present illness: 54-year-old male presents to the emergency department at the request of his PCP today for a 2-day history of dull aching and swelling in his left testicle/inguinal/groin region, concern for possible incarcerated versus strangulated inguinal hernia by PCP this prompted to come to the emergency department. Patient denies any fever chills, admits to some subjective body aches , chest pain shortness of breath nausea vomiting constipation diarrhea, denies any overt abdominal pain, denies any urinary type symptomatology, denies urethral discharge, no new sexual contacts, patient is current everyday smoker, denies any alcohol or drug use, other past medical history except for T2DM, prior cholecystectomy otherwise unremarkable past medical history. Reviewed the patient's testicular ultrasound along the corresponding radiologic report, bilateral epididymitis, irregular shaped echogenic area of tissue inferior to the bilateral testicles, could reflect focal inflammatory tissue no torsion. I reviewed the patient's CT and pelvis with contrast along the corresponding radiologic report, soft tissue swelling involving the left perineum with skin thickening in this region there is an ill-defined fluid collection measuring 2.8 x 1.8 cm concerning for developing abscess no soft tissue gas or Hernandez's gangrene. Will start patient on prophylactic 3.375 IV Zosyn. I discussed this patient's case with the on-call hospitalist physician Dr. Grossman at approximately 7:25 PM, he recommends touching base with general surgery prior to admission, also potential urology consult due to the location and nature of the patient's abscess. I discussed this patient's case in depth with Dr. Campoverde the on-call general surgeon at approximately 7:40 PM, he reviewed the patient's images, he is amicable for n.p.o. after midnight, admission to the hospitalist service with IV antibiotics, IV Zosyn will cover the patient at this time for possible left-sided peritoneal abscess. (above as per ER physician) [facility] Disclaimer: The information contained in this section may have been updated after the patient was seen, as this information can be updated by other users. Medical History (Updated 04/12/25 @ 13:16 by SHANTE Gutierrez) B12 deficiency Hyperlipemia Smoker Diabetes FH: cholecystectomy Surgical History (Updated 04/12/25 @ 13:13 by SHANTE Gutierrez) History of cholecystectomy History of colonoscopy H/O hemorrhoidectomy Family History (Updated 04/12/25 @ 13:12 by SHANTE Gutierrez) Coronary artery disease Social History (Updated 04/12/25 @ 08:13 by Sandoval Neff CRNA) Smoking Status: Current every day smoker alcohol intake: never substance use type: denies use current occupational status: other Travel in the last 8 weeks?: None Other Medical History Have you received the Flu Vaccine for this season: No Have you received the Pneumonia Vaccine: No Review of Systems Constitutional Constitutional: Denies fatigue, Denies headache(s) and Denies weakness Eyes Eyes: Denies blurry vision and Denies diplopia ENT Ears, Nose, Mouth, and Throat: Denies headache(s), Denies nasal congestion, Denies sore throat and Denies vertigo *Cardiovascular Cardiovascular: Denies chest pain, Denies dyspnea and Denies leg edema *Respiratory Respiratory: Denies cough and Denies dyspnea *Gastrointestinal Gastrointestinal: Denies abdominal pain, Denies loose stools, Denies nausea and Denies vomiting *Genitourinary Genitourinary: Denies difficulty urinating, Denies dysuria and Reports scrotal swelling *Musculoskeletal Musculoskeletal: Denies arthralgias and Denies myalgias *Neurologic Neurologic: Denies headache(s), Denies vertigo and Denies weakness Endocrine Endocrine: Denies fatigue Exam Data for Last 24 hours Vital signs and Labs for Last 24 Hours: Temp Pulse Resp BP Pulse Ox O2 Del Method O2 Flow Rate 98.0 F 64 14 118/69 97 Room Air 2 04/12/25 12:35 04/12/25 12:35 04/12/25 12:41 04/12/25 12:35 04/12/25 12:35 04/12/25 10:20 04/12/25 10:00 Laboratory Results - last 24 hr 04/11/25 17:22: WBC 15.5 H, RBC 4.92, Hgb 16.0, Hct 46.5, MCV 94.5 H, MCH 32.5 H, MCHC 34.4, RDW 12.0, Plt Count 212, MPV 9.8, Neut % (Auto) 71.4, Lymph % (Auto) 17.2, Bee % (Auto) 9.3, Eos % (Auto) 1.4, Baso % (Auto) 0.2, Neut # (Auto) 11.1 H, Lymph # (Auto) 2.7, Bee # (Auto) 1.4 H, Eos # (Auto) 0.2, Baso # (Auto) 0.0, Sodium 139, Potassium 4.4, Chloride 102, Carbon Dioxide 27, Anion Gap 14.4, BUN 14, Creatinine 0.80, Estimated Creat Clear 165, Estimated GFR 100, Est GFR ( Amer) 121, Glucose 122 H, Lactate 1.4, Calcium 9.3, Total Bilirubin 0.6, AST 24, ALT 21, Alkaline Phosphatase 73, Total Protein 7.7, Albumin 4.8, Globulin 2.9, Albumin/Globulin Ratio 1.7, Lipase 889 H 04/11/25 17:33: Urine Color Yellow, Urine Appearance Clear, Urine pH 6.0, Ur Specific [place] 1.010, Urine Protein Negative, Urine Glucose (UA) 3+, Urine Ketones Negative, Urine Blood Negative, Urine Nitrate Negative, Urine Bilirubin Negative, Urine Urobilinogen 0.2, Ur Leukocyte Esterase Negative, Urine RBC Occasional, Urine WBC Occasional, Ur Squamous Epith Cells Occasional, Urine Bacteria 1+ 04/12/25 08:01: POC Glucose 129 H 04/12/25 10:05: POC Glucose 130 H I & O for Last 24 hours: Intake & Output 04/10/25 04/11/25 04/12/25 04/13/25 11:59 11:59 11:59 11:59 Intake Total 1000 / 1000 0 / 0 Output Total 350 / 350 Balance 650 / 650 0 / 0 Weight 248 lb 14.4 oz Constitutional Constitutional: no acute distress *Routine HEENT Exam Head: Present normocephalic and atraumatic Eye: Present EOMI and PERRL ENT: Present mucous membranes moist *Routine Neck Exam Neck: Present supple and full ROM *Routine Respiratory Exam Respiratory: Present CTA bilaterally *Routine Cardiovascular Exam Cardiovascular: Present RRR *Routine Abdominal Exam Abdominal: Present soft and normoactive bowel sounds; Absent tenderness *Routine Rectal Exam Rectal:: deferred *Routine Genitalia Exam Genitalia:: other (scrotal swelling) Comment:: packing and dressing in place over the left groin, some scrotal swelling *Routine Extremities Exam Extremities: Absent cyanosis, clubbing or edema *Routine Skin Exam Skin: Present intact; Absent erythema *Routine Neurological Exam Neurological: Present alert and oriented X3 Meds Home Medications and Allergies Home Medications ?Medication ?Instructions ?Recorded ?Confirmed ?Type dapagliflozin propanediol 10 mg 10 mg PO DAILY 04/11/25 04/11/25 History tablet (Farxiga) metformin 850 mg tablet 850 mg PO DAILY 04/11/25 04/11/25 History amoxicillin 500 mg-potassium 1 tab PO TID #15 tabs 04/12/25 Rx clavulanate 125 mg tablet (Augmentin) hydrocodone 5 mg-acetaminophen 325 1 tab PO Q6H PRN post-op pain; 04/12/25 Rx mg tablet dressing changes #17 tabs sulfamethoxazole 800 1 tab PO Q12H #20 tabs 04/12/25 Rx mg-trimethoprim 160 mg tablet (Bactrim DS) New Prescriptions to Start Prescriptions: amoxicillin-pot clavulanate [Augmentin] Jin Campoverde hydrocodone-acetaminophen Jin Campoverde sulfamethoxazole-trimethoprim [Bactrim DS] Tano Grossman Allergies Allergy/AdvReac Type Severity Reaction Status Date / Time No Known Allergies Allergy Verified 01/14/18 10:39 Hospital Course Hospital Course Hospital Course: The patient went to the OR for I&D of the perineal abscess. He is stable to be discharged home today on continued antibiotics, pain medication, and will need to do daily dressing changes. He will f/u with Dr. Campoverde next week and with Dr. Grossman in 2 weeks. Results Data Completed and Pending Labs on day of discharge: Labs from last 24 hours 04/12/25 04/12/25 04/11/25 10:05 08:01 17:33 WBC RBC Hgb Hct MCV MCH MCHC RDW Plt Count MPV Neut % (Auto) Lymph % (Auto) Bee % (Auto) Eos % (Auto) Baso % (Auto) Neut # (Auto) Lymph # (Auto) Bee # (Auto) Eos # (Auto) Baso # (Auto) Sodium Potassium Chloride Carbon Dioxide Anion Gap BUN Creatinine Estimated Creat Clear Estimated GFR Est GFR ( Amer) Glucose POC Glucose 130 H 129 H Lactate Calcium Total Bilirubin AST ALT Alkaline Phosphatase Total Protein Albumin Globulin Albumin/Globulin Ratio Lipase Urine Color Yellow Urine Appearance Clear Urine pH 6.0 Ur Specific [place] 1.010 Urine Protein Negative Urine Glucose (UA) 3+ Urine Ketones Negative Urine Blood Negative Urine Nitrate Negative Urine Bilirubin Negative Urine Urobilinogen 0.2 Ur Leukocyte Esterase Negative Urine RBC Occasional Urine WBC Occasional Ur Squamous Epith Cells Occasional Urine Bacteria 1+ 04/11/25 17:22 WBC 15.5 H RBC 4.92 Hgb 16.0 Hct 46.5 MCV 94.5 H MCH 32.5 H MCHC 34.4 RDW 12.0 Plt Count 212 MPV 9.8 Neut % (Auto) 71.4 Lymph % (Auto) 17.2 Bee % (Auto) 9.3 Eos % (Auto) 1.4 Baso % (Auto) 0.2 Neut # (Auto) 11.1 H Lymph # (Auto) 2.7 Bee # (Auto) 1.4 H Eos # (Auto) 0.2 Baso # (Auto) 0.0 Sodium 139 Potassium 4.4 Chloride 102 Carbon Dioxide 27 Anion Gap 14.4 BUN 14 Creatinine 0.80 Estimated Creat Clear 165 Estimated GFR 100 Est GFR ( Amer) 121 Glucose 122 H POC Glucose Lactate 1.4 Calcium 9.3 Total Bilirubin 0.6 AST 24 ALT 21 Alkaline Phosphatase 73 Total Protein 7.7 Albumin 4.8 Globulin 2.9 Albumin/Globulin Ratio 1.7 Lipase 889 H Urine Color Urine Appearance Urine pH Ur Specific [place] Urine Protein Urine Glucose (UA) Urine Ketones Urine Blood Urine Nitrate Urine Bilirubin Urine Urobilinogen Ur Leukocyte Esterase Urine RBC Urine WBC Ur Squamous Epith Cells Urine Bacteria DS: Diagnosis Discharge Diagnosis (1) Cutaneous abscess of perineum: Status: Acute Code(s): L02.215 - Cutaneous abscess of perineum (2) Diabetes: Status: Acute Code(s): E11.9 - Type 2 diabetes mellitus without complications (3) B12 deficiency: Status: Acute Code(s): E53.8 - Deficiency of other specified B group vitamins (4) Hyperlipemia: Status: Acute Code(s): E78.5 - Hyperlipidemia, unspecified Discharge Plan Disposition Patient Disposition: Home, Self-Care Condition: Fair Discharge Order Discharge Orders: Discharge Order (Routine); Ordered 04/12/25 Ordered By: Tano Grossman Follow up Plan Follow up with: Tano Grossman MD [Primary Care Provider, Medical] - 04/26/25 10:30 am Jin Campoverde MD [Staff Physician, General Surgery] - 04/18/25 1:30 pm Prescriptions/Medication Reconciliation: New amoxicillin-pot clavulanate [Augmentin] 500-125 mg tablet 1 tab PO TID Qty: 15 0RF hydrocodone-acetaminophen 5-325 mg tablet 1 tab PO Q6H PRN (Reason: post-op pain; dressing changes) Qty: 17 0RF sulfamethoxazole-trimethoprim [Bactrim DS] 800-160 mg tablet 1 tab PO Q12H Qty: 20 0RF Continued metformin 850 mg tablet 850 mg PO DAILY Patient Comments: TAKE ONE TABLET BY MOUTH EVERY DAY with a meal dapagliflozin propanediol [Farxiga] 10 mg tablet 10 mg PO DAILY Patient Comments: TAKE ONE TABLET BY MOUTH EVERY DAY Problem Reconciliation Problems Reviewed?: Yes Patient Discharge Instructions ACTIVITY: Limited activity DIET: continue same diet Additional Instructions: Dry dressing changes at least daily Patient Instructions: DI for Incision and Drainage of a Skin Abscess, DI for Surgical Site Infection, DI for Skin Abscess, Stop Light Infection Print Language: Ghanaian Providers Primary Care Provider: Tano Grossman Admit Provider: Tano Grossman Attending Provider: Tano Grossman
--- NOTE | 2025-04-13 10:48 | SW/DCPLANNER ---
Spoke with patient on the phone. Patient stated that he is doing good. Patient stated that he is aware of his upcoming appointments. Patient stated that his new medicine was delivered to his room. Patient stated that he does not have any concerns or questions at this time. Jeremiah Lantigua
== END 2025-04-12 14:05 | disposition home or self-care (01) | DRG 603 ==
LOC: ER 19:46 → 2ND 19:57
PROVIDERS: Physician Assistant; Surgery; Admitting Provider Family Medicine; Emergency Provider Student in an Organized Health Care Education/Training Program; PCP Family Medicine; Visit Provider Family Medicine
PROC: 0J9B0ZZ Drainage of Perineum Subcutaneous Tissue and Fascia, Open Approach (ICD-10-PCS; CPT 56405; principal; 2025-04-12 09:30)
DX: L02.215 Cutaneous abscess of perineum (principal); E11.9 Type 2 diabetes mellitus without complications; N45.1 Epididymitis; F17.200 Nicotine dependence, unspecified, uncomplicated; E78.5 Hyperlipidemia, unspecified; E53.8 Deficiency of other specified B group vitamins; Z90.49 Acquired absence of other specified parts of digestive tract; Z79.84 Long term (current) use of oral hypoglycemic drugs
CPT/HCPCS: 74177; 76870; 80053; 81001; 82962; 83605; 83690; 85025; 87070; 87205; 99285; J0690; J1100; J1836; J2003; J2250; J2405; J2543; J2704; J3010; J3373; J7030; J7050; Q9967

== ENCOUNTER 2025-07-16 08:51 | Outpatient (CLI) | payer BC, SELFPAY ==
--- OUTSIDE RECORDS SUMMARY | 2024-01-17 05:15 | XMS_ITS ---
Author Organization [facility] Address [address] [place] [id number] Care Team Providers Care Grinding And Polishing Laborer Name Role Phone Steff Ace Primary Care Provider Allergies No Known Allergies Results Component Value Reference Range Notes Glycohemoglobin A1c (in hous e) Reviewed date:01/17/2024 11:47:36 AM Interpretation: Performing Lab: Notes/Report: glycohemoglobin 6.7% 5 - 6.5 % Cologuard Reviewed date:07/24/2024 12:48:19 PM Interpretation:Negative Performing Lab: Notes/Report: Negative Cologuard Negative P-Comprehensive Metabolic Pa alex (CMP) Reviewed date:01/26/2024 12:25:51 PM Interpretation:gluc 105, a/g 2.9 Performing Lab: Notes/Report: CLIA: [id number] Everette Dee MD, Supervisor Cereal [address] [facility] , [place] [address] Test performed by [employer], [employer] Sodium 139 135-145 mmol/L Potassium 5.1 3.5-5.3 mmol/L Chloride 104 97-108 mmol/L CO2 27 22-32 mmol/L Glucose 105 65-99 mg/dL BUN 15 6-20 mg/dL Creatinine 0.85 0.70-1.30 mg/dL Calcium 9.3 8.6-10.4 mg/dL eGFR by Creatinine 102 >59 mL/min/1.73m2 Protein 6.2 6.0-8.3 g/dL Albumin 4.6 3.5-5.3 g/dL Alkaline Phosphatase 84 40-129 IU/L ALT (SGPT) 20 <5-55 IU/L AST (SGOT) 20 <5-46 IU/L Bilirubin, Total 0.4 <0.2-1.2 mg/dL A/G Ratio 2.9 1.1-2.5 mg/dL P-Lipid Panel Reviewed date:01/26/2024 12:25:51 PM Interpretation:trigs 157, hdl 33 Performing Lab: Notes/Report: Test performed by [employer] [address] , [address], [place] [address] Everette Dee MD, Supervisor Cereal CLIA: [id number] Cholesterol 122 <200 mg/dL Triglycerides 157 <150 mg/dL HDL Cholesterol 33 >39 mg/dL Cholesterol / HDL Ratio 3.70 0.00-4.99 Ratio Non-HDL Cholesterol 89 <130 mg/dL LDL Cholesterol (Calculation) 58 <130 mg/dL LDL Cholesterol Levels* Less than 100 mg/dL Optimal 100 to 129 mg/dL Near Optimal/ Above Optimal 130 to 159 mg/dL Borderline High 160 to 189 mg/dL High 190 mg/dL and above Very High * Categories as recommended by the 2004 ATPIII guidelines LDL/HDL Ratio 1.7 <3.3 Ratio LDL Cholesterol Patient History Test Date: 01/18/2023 LDL Results: 62 Units: mg/dL % Change: - Test Date: 01/17/2024 LDL Results: 58 Units: mg/dL % Change: -6% P-PSA Reviewed date:01/26/2024 12:25:51 PM Interpretation:Normal Performing Lab: Notes/Report: Test performed by [employer], [address] , [address], [place] [address] Everette Dee MD, Supervisor Cereal CLIA: [id number] PSA 0.18 <4.00 ng/mL Please note this is an ultrasensitive PSA assay with a lower limit of detection of 0.014 ng/mL. This test is performed by the Ad ECLIA methodology. Values obtained with different assay methods or kits cannot be directly compared. CT Scan : Chest, low dose Reviewed date:01/31/2024 03:00:34 PM Interpretation:nothing suspicious, annual f/u Performing Lab: Notes/Report: nothing suspicious, annual f/u REASON FOR VISIT 6 month f/u fasting, Needs labs with PSA, colon cancer screening, low dose chest CT, diabetic eye exam, Tdap, & shingles vaccine Medications Medication SIG (Take, Route, Frequency, Duration) Notes Start Date End Date Status Aspirin Adult Low Strength 81 MG 1 tab(s) orally once a day; Duration: 30 day(s) 03/19/2021 Active metFORMIN HCl 850 mg 1 tablet with a zachary l Orally Once a day; Duration: 90 days Active Super B-Complex - as directed Orally Active B-12 1000 MCG 1 tab(s) orally once a day 2000 mcg a day 10/24/2020 Active Farxiga 5 mg 1 tablet Orally Once a day; Duration: 90 days Active Vital Signs Blood pressure systolic 130 mm Hg 01/17/20 24 Blood pressure diastolic 82 mm Hg 024 Heart Rate 50 /min 01/17/2024 Height 74.50 in 01/17/2024 Weight 243.6 lbs 01/17/2024 BMI 30.85 kg/m2 01/17/2024 Encounters Encounter Location Date Provider Diagnosis [facility] [address] [facility] [address] [facility] [address] [place] [id number] 01/17/2024 Steff Ace Type 2 diabetes mellitus without complication, without long-term current use of insulin E11.9 ; Benign prostatic hyperplasia without lower urinary tract symptoms N40.0 ; Screen for colon cancer Z12.11 ; Hyperlipidemia, unspecified E78.5 ; Tobacco use Z72.0 and Actinic keratoses L57.0 Assessments Encounter Date Diagnosis (ICD Code) Assessment Notes Treatment Notes Treatment Clinical Notes Section Notes 01/17/2024 Type 2 diabetes mellitus without complication, without long-term current use of insulin (ICD-10 - E11.9) 01/17/2024 Benign prostatic hyperplasia without lower urinary tract symptoms (ICD-10 - N40.0) 01/17/2024 Screen for colon cancer (ICD-10 - Z12.11) 01/17/2024 Hyperlipidemia, unspecified (ICD-10 - E78.5) 01/17/2024 Tobacco use (ICD-10 - Z72.0) 01/17/2024 Actinic keratoses (ICD-10 - L57.0) Plan Of Treatment Next Appt Details Follow Up: 6 Months, Reason: Provider Name:Steff Washington er, 09/21/2025 10:15:00 AM, [address] [facility] [address] [facility], [address], [place], [id number], Procedure Notes * Category Sub-Category Detail Notes Cryotherapy Actinic Keratosis Number of lesions treated: right jew and right hand dorsum Method: Maranda LL-100 used to freeze and refreeze the lesions, The patient tolerated the procedure well. Post Op instruction: Wash with vinegar w ater twice a day, Apply Vaseline twice a day Progress Notes * Donna ELLIOTTOB:1970 ([age] yo M)Acc No.[id number]:01/17/2024 Patient: Huy ARENAS Provider: Steff Ace M.D. :1970 A ge:53 Y S ex:Male Date:01/17/2024 Address:[address] [place] [address] [address], [place], [id number] Subjective: * Chief Complaints: * 1 . 6 month f/u fasting. 2. Needs labs with PSA, colon cancer screening, low dose chest CT, diabetic eye exam, Tdap, & shingles vaccine. * HPI: C ardiology: The pt is here for a check up on Hypertension and Diabetes. Pt states he has a spot on the right jew he would like checked out. Pt states it has been there for a very long time but is now sore to touch. Pt fasting. Pt states he is needing refills sent to clinic pharmacy. Denies : Chest Pain. D enies : Short of Breath. D enies : Dizziness. D enies : Palpitations. * ROS: D ERMATOLOGY: no R yung. n o H charisma. G ASTROENTEROLOGY: no N ausea. n o V omiting. n o D iarrhea.? U ROLOGY: no D ifficulty urinating. n o B lood in urine. * Medical History: C OVID 19 Vaccine J&J October 2020. * Surgical History: g allbladder 2002, Hemorrhoidectomy- Dr Steven Fernando 09/11/2021, Colonoscopy per Dr. Quinn . * Family History: F ather: , heart disease, alcohol abuse. M other: alive, arthritis, heart disease.?Siblings: sister , of a tumor on her spine at 38. 1 brother(s) , 1 sister(s) . 1 son(s) . . * Social History: C URRENT TOBACCO USE S moking Status: Patient does smoke, number of cigarettes per day: 15, Since age of: 12. C affeine: yes, frequency: coffee, pop. Exercise: no. Marital Status: . Past smoking status: yes, PPD: , years: ,determination:. Alcohol: Yes, Type: , Frequency: ,Years: , Determination:, rare. * Medications: T aking Super B-Complex - Tablet as directed Orally , Taking B-12 1000 MCG Tablet 1 tab(s) orally once a day , Notes to Pharmacist: 2000 mcg a day, Taking Aspirin Adult Low Strength 81 MG Tablet Delayed Release 1 tab(s) orally once a day , Taking metFORMIN HCl 850 mg Tablet 1 tablet with a meal Orally Once a day , Taking Farxiga 5 mg Tablet 1 tablet Orally Once a day , Medication List reviewed and reconciled with the patient * Allergies: N .K.D.A. Objective: * Vitals: W t:243.6, Temp:97.8, BP:130/82, HR:50, Nurse:TENNILLE, Ht: 74.50, BMI:30.85. * Examination: G eneral Examination: General Appearance: N AD. H EENT: u nremarkable.?Oral cavity: n o lesions, mucosa moist and WNL, no erythema. N jane: s upple, no lymphadenopathy. C hest: n ormal shape and expansion. H eart: R SR. L ungs: c lear to auscultation. A bdomen: soft and nontender, no organomegaly or masses. N eurologic Exam: I ntact, gait normal. S kin: t emple lesion c/w actinic keratosis, keratotic lesion of the right hand dorsum has recurred. P eripheral pulses: n ormal . B ack: normal. E xtremities: n o leg edema. Assessment: * Assessment: 1. T ype 2 diabetes mellitus without complication, without long-term current use of insulin - E11.9 (Primary) 2 . B enign prostatic hyperplasia without lower urinary tract symptoms - N40.0 3 . S creen for colon cancer - Z12.11 4 . H yperlipidemia, unspecified - E78.5 5 . T obacco use - Z72.0 6 .?Actinic keratoses - L57.0 Plan: * Treatment: Value Reference Range A /G Ratio 2.9 H 1.1-2.5 - mg/dL * A lbumin 4.6 3.5-5.3 - g/dL * A lkaline Phosphatase 84 40-129 - IU/L * A LT (SGPT) 20 <5-55 - IU/L * A ST (SGOT) 20 <5-46 - IU/L * B ilirubin, Total 0.4 <0.2-1.2 - mg/dL * B UN 15 6-20 - mg/dL * C alcium 9.3 8.6-10.4 - mg/dL * C hloride 104 97-108 - mmol/L * C O2 27 22-32 - mmol/L * C reatinine 0.85 0.70-1.30 - mg/dL * G lucose 105 H 65-99 - mg/dL * P otassium 5.1 3.5-5.3 - mmol/L * S odium 139 135-145 - mmol/L * P rotein 6.2 6.0-8.3 - g/dL * e GFR by Creatinine 102 >59 - mL/min/1.73m2 * Nehal Warren 01/26/2024 12:25:44 PM >See phone encounter ?LAB: Glycohemoglobin A1c (in house) (Collection Date & Time - 01/17/2024)* Value Reference Range g lycohemoglobin 6.7% 5 - 6.5 % * Stephania Stewart 01/17/2024 11: 09:35 AM > , Provider reviewed results while patient in office. 2.?Benign prostatic hyperplasia without lower urinary tract symptoms?LAB: P-PSA (Collection Date & Time - 01/17/2024 10:00 AM)?Normal* Value Reference Range P SA 0.18 <4.00 - ng/mL * Nehal Warren 01/26/2024 12:25:44 PM >See phone encounter 3.?Screen for colon cancer?LAB: Cologuard (Collection Date & Time - 04/24/2024)?Negative* Value Reference Range C helen Negative * Delmy Foster 01/26/2024 9:32: 05 AM > order submitted onlineStephania Stewart 07/24/2024 12:48:07 PM > , Patient informed of normal results. 4.?Hyperlipidemia, unspecified?LAB: P-Lipid Panel (Collection Date & Time - 01/17/2024 10:00 AM)?trigs 157, hdl 33* Value Reference Range C holesterol / HDL Ratio 3.70 0.00-4.99 - Ratio * C holesterol 122 <200 - mg/dL * H DL Cholesterol 33 L >39 - mg/dL * L DL Cholesterol (Calculation) 58 <130 - mg/d L * L DL/HDL Ratio 1.7 <3.3 - Ratio * N on-HDL Cholesterol 89 <130 - mg/dL * T riglycerides 157 H <150 - mg/dL * Nehal Warren 01/26/2024 12:25:44 PM >See phone encounter 5.?Tobacco use?Imaging: CT Scan : Chest, low dose (Performed Date - 01/26/2024)?nothing suspicious, annual f/u* AdrianeFara 01/18/2024 10:20 :46 AM > auth# [id number], valid 01/18/2024 through 02/16/2024; CPT [id number],Brynn 01/18/2024 10:48:24 AM > [facility] 01/26/2024 at 09:15am; pt informed; order faxedGoble,Joann 01/31/2024 3:00:05 PM > pt informed of results * Procedures: C ryotherapy Actinic Keratosis: Number of lesions treated: r ight jew and right hand dorsum. M ethod: W allach LL-100 used to freeze and refreeze the lesions, The patient tolerated the procedure well.. P ost Op instruction: W yung with vinegar water twice a day, Apply Vaseline twice a day. * Procedure Codes: 3 6416 CAPILLARY BLOOD DRAW, 36668 GLYCATED HEMOGLOBIN TEST, Modifiers: QW , 96162 DESTRUCTION BENIGN LESION, CRYOSURGERY,ELECTROSURGERY FIRST LESION, 08850 DESTRUCTION BENIGN LESION,CRYO, ELECTRO, 2-14 LESIONS * Follow Up: 6 Months * Images: Billing Information: * Visit Code: 83089 Office Visit, Est Pt., Level 4. * Procedure Codes: 36990 CAPILLARY BLOOD DRAW. 72741 GLYCATED HEMOGLOBIN TEST. Modifiers: QW 32772 DESTRUCTION BENIGN LESION, CRYOSURGERY,ELECTROSURGERY FIRST LESION. 00540 DESTRUCTION BENIGN LESION,CRYO, ELECTRO, 2-14 LESIONS. * Electronic signature of Steff Ace MD on 07/16/2025 at 08:53 AM EST Sign off status: Pending * Provider: Steff Ace M.D. Date: 0 01/17/2024 Generated for Teja martinez/Bismark/eTransmitting on: 1 09/16/2024 08:53 AM EST History and Physical Notes * HPI (History of Present Illness) Category Sub-Category Detail Notes Category Not es Cardiology Short of Breath Chest Pain Palpitations Dizziness Examination Category Sub-Category Detail Notes Category Not es General Examination HEENT: unremarkable Heart: RSR Lungs: clear to auscultatio n Abdomen: soft and nontender, no organomegaly or masses Extremities: no leg edema General Appearance: NAD Skin: jew lesion c/w ac tinic keratosis, keratotic lesion of the right hand dorsum has recurred Neurologic Exam: Intact, gait normal Neck: supple, no lymphaden opathy Oral cavity: no lesions, mucosa m oist and WNL, no erythema Peripheral pulses: normal Back: normal Chest: normal shape and exp ansion
--- OUTSIDE RECORDS SUMMARY | 2024-01-20 05:30 | XMS_ITS ---
Author Organization [facility] Address [address] [facility] [address] [place] [id number] Care Team Providers Care Yard Person Name Role Phone Steff Ace Primary Care Provider REASON FOR VISIT 6 mo ck Encounters Encounter Location Date Provider Diagnosis [facility] [address] [place] [id number] 01/20/2024 Steff Ace Plan Of Treatment Next Appt Details Provider Name:Steff Washington er, 09/21/2025 10:15:00 AM, [address], [address], [place], [phone], Progress Notes * Donna ELLIOTTOB:1970 ([age] yo M)Acc No.[id number]:01/20/2024 Progress Notes Patient: Huy ARENAS Provider: Steff Ace M.D. :1970 A ge:53 Y S ex:Male Date:01/20/2024 Address:[address] [facility] [address], [id number] Subjective: * Chief Complaints: * 1 . 6 mo ck. * Medical History: Objective: * Vitals: Assessment: Plan: * Treatment: * Images: Billing Information: * Visit Code: * Procedure Codes: * Electronic signature of Steff Ace MD on 07/16/2025 at 08:53 AM EST Sign off status: Pending * Provider: Steff Ace M.D. Date: 0 01/20/2024 Generated for Teja martinez/Bismark/Luis F on: 1 09/16/2024 08:53 AM EST
--- OUTSIDE RECORDS SUMMARY | 2024-07-24 04:30 | XMS_ITS ---
Author Organization [facility] Address [address] [place] [phone] Care Team Providers Care Inventory Specialist Manager Name Role Phone Steff Ace Primary Care Provider [phone] Allergies No Known Allergies Results Component Value Reference Range Notes Glycohemoglobin A1c (in hous e) Reviewed date:07/25/2024 09:50:04 AM Interpretation:6.7% Performing Lab: Notes/Report: 6.7% glycohemoglobin 6.7% 5 - 6.5 % P-Comprehensive Metabolic Pa alex (CMP) Reviewed date:07/25/2024 09:50:04 AM Interpretation:gluc 121 Performing Lab: Notes/Report: Test performed by [facility] , [address], [place] [address] Everette Dee MD, Obstetrics Gynecology Md CLIA: [id number] Sodium 139 135-145 mmol/L Potassium 5.2 3.5-5.3 mmol/L Chloride 105 97-108 mmol/L CO2 26 22-32 mmol/L Glucose 121 65-99 mg/dL BUN 15 6-20 mg/dL Creatinine 0.85 0.70-1.30 mg/dL Calcium 9.5 8.6-10.4 mg/dL eGFR by Creatinine 102 >59 mL/min/1.73m2 Protein 6.3 6.0-8.3 g/dL Albumin 4.5 3.5-5.3 g/dL Alkaline Phosphatase 78 40-129 IU/L ALT (SGPT) 24 <5-55 IU/L AST (SGOT) 19 <5-46 IU/L Bilirubin, Total 0.3 <0.2-1.2 mg/dL A/G Ratio 2.5 1.1-2.5 P-Lipid Panel Reviewed date:07/25/2024 09:50:04 AM Interpretation:trigs 184, hdl 36 Performing Lab: Notes/Report: Test performed by [facility], [address] , [address] , [place] [address] Everette Dee MD, Obstetrics Gynecology Md CLIA: [id number] Cholesterol 149 <200 mg/dL Triglycerides 184 <150 mg/dL HDL Cholesterol 36 >39 mg/dL Cholesterol / HDL Ratio 4.14 0.00-4.99 Ratio Non-HDL Cholesterol 113 <130 mg/dL LDL Cholesterol (Calculation) 76 <130 mg/dL LDL Cholesterol Levels* Less than 100 mg/dL Optimal 100 to 129 mg/dL Near Optimal/ Above Optimal 130 to 159 mg/dL Borderline High 160 to 189 mg/dL High 190 mg/dL and above Very High * Categories as recommended by the 2004 ATPIII guidelines LDL/HDL Ratio 2.1 <3.3 Ratio LDL Cholesterol Patient History Test Date: 01/18/2023 LDL Results: 62 Units: mg/dL % Change: - Test Date: 01/17/2024 LDL Results: 58 Units: mg/dL % Change: -6% Test Date: 07/24/2024 LDL Results: 76 Units: mg/dL % Change: +31% P-Microalbumin/Creatinine, R andom Urine Sample Reviewed date:07/25/2024 09:50:04 AM Interpretation:Normal Performing Lab: Notes/Report: Test performed by [facility] [address] [place] [address] , [address], [place] [address] Everette Dee MD, Obstetrics Gynecology Md CLIA: [id number] Albumin/Creatinine Ratio, Urine <10.7 0-30 ug/m g Microalbumin, Urine, Random <0.3 Creatinine, Urine 27.9 REASON FOR VISIT 6 month check up, Needs labs, colon cancer screening, diabetic eye exam, Tdap, shingles, & flu vaccines Medications Medication SIG (Take, Route, Frequency, Duration) Notes Start Date End Date Status metFORMIN HCl 850 mg TAKE ONE TABLET BY MOUTH EVERY DAY with a meal; Duration: 90 Active Aspirin Adult Low Strength 81 MG 1 tab(s) orally once a day; Duration: 30 day(s) 03/19/2021 Active Farxiga 10 MG 1 tablet Orally Once a day; Duration: 30 day(s) 07/24/2024 Active B-12 1000 MCG 1 tab(s) orally once a day 2000 mcg a day 10/24/2020 Active Super B-Complex - as directed Orally Active Immunizations Vaccine Route Administration Date Status Comme nts Tetanus Tdap-Adacel (over 7yrs) IM Intramuscular 07/24/2024 Administered Problems Problem Type SNOMED Code ICD Code Onset Dates Problem Status W/U Status Risk Notes Problem Hyperlipidemia due to type 2 diabetes mellitus (disorder) (389991618886425) Hyperlipidemia associated with type 2 diabetes mellitus (E11.69) Active confirmed Vital Signs Blood pressure systolic 126 mm Hg 07/24/20 24 Blood pressure diastolic 80 mm Hg 024 Heart Rate 58 /min 07/24/2024 Height 74.50 in 07/24/2024 Weight 249.2 lbs 07/24/2024 BMI 31.56 kg/m2 07/24/2024 Encounters Encounter Location Date Provider Diagnosis [facility] [address] [facility] [address] [facility] [address] [place], [place] [phone] 07/24/2024 Steff Ace Hyperlipidemia associated with type 2 diabetes mellitus E11.69 ; Type 2 diabetes mellitus without complication, without long-term current use of insulin E11.9 and Encounter for immunization Z23 Assessments Encounter Date Diagnosis (ICD Code) Assessment Notes Treatment Notes Treatment Clinical Notes Section Notes 07/24/2024 Hyperlipidemia associated with type 2 diabetes mellitus (ICD-10 - E11.69) 07/24/2024 Type 2 diabetes mellitus without complication, without long-term current use of insulin (ICD-10 - E11.9) 07/24/2024 Encounter for immunization (ICD-10 - Z23) Plan Of Treatment Medication Medication Name Sig Start Date Stop Date Notes Farxiga 10 MG 1 tablet Orally Once a day; Duration: 30 day(s) 07/24/2024 Farxiga 5 mg TAKE ONE TABLET BY MOUTH EVERY DAY Next Appt Details Follow Up: 4 Months, Reason: Provider Name:Steff Washington er, 09/21/2025 10:15:00 AM, [address] [facility] [address] [facility], [address], [place], [phone], Progress Notes * Gary ELLIOTTJignaOB:1970 ([age] yo M)Acc No.[id number]:07/24/2024 Progress Notes Patient: Huy ARENAS Provider: Steff Ace M.D. :1970 A ge:54 Y S ex:Male Date:07/24/2024 Address:[address] [place] [address], [id number] Subjective: * Chief Complaints: * 1 . 6 month check up. 2. Needs labs, colon cancer screening, diabetic eye exam, Tdap, shingles, & flu vaccines. * HPI: C ardiology: The patient is here today for a check up on Hyperlipidemia and Diabetes. Pt states he is doing good and denies any new concerns. Pt is fasting. Denies : Chest Pain. D enies : Short of Breath. D enies : Dizziness. D enies : Palpitations. G astroenterology: NEVER HEARD FROM [facility]. * ROS: D ERMATOLOGY: no R yung. [...] , Taking metFORMIN HCl 850 mg Tablet TAKE ONE TABLET BY MOUTH EVERY DAY with a meal , Taking Farxiga 5 mg Tablet TAKE ONE TABLET BY MOUTH EVERY DAY , Medication List reviewed and reconciled with the patient * Allergies: N .K.D.A. Objective: * Vitals: W t:249.2, Temp:97.8, BP:126/80, HR:58, Nurse:TENNILLE, Ht: 74.50, BMI:31.56. * Examination: G eneral Examination: General Appearance: [...] Exam: I ntact, gait normal. S kin: n ormal, no rash. P eripheral pulses: n ormal . B ack: normal. E xtremities: n o leg edema. Assessment: * Assessment: 1. H yperlipidemia associated with type 2 diabetes mellitus - E11.69 (Primary) 2 . T ype 2 diabetes mellitus without complication, without long-term current use of insulin - E11.9 3 . E ncounter for immunization - Z23 Plan: * Treatment: Value Reference Range C holesterol / HDL Ratio 4.14 0.00-4.99 - Ratio * C holesterol 149 <200 - mg/dL * H DL Cholesterol 36 L >39 - mg/dL * L DL Cholesterol (Calculation) 76 <130 - mg/d L * L DL/HDL Ratio 2.1 <3.3 - Ratio * N on-HDL Cholesterol 113 <130 - mg/dL * T riglycerides 184 H <150 - mg/dL * Noreen Bundy 07/25/2024 9:50 :00 AM >See phone encounter 2.?Type 2 diabetes mellitus without complication, without long-term current use of insulin? Stop Farxiga Tablet, 5 mg, TAKE ONE TABLET BY MOUTH EVERY DAY;?Start Farxiga Tablet, 10 MG, 1 tablet, Orally, Once a day, 30 day(s), 30, Refills 5.?LAB: P-Comprehensive Metabolic Panel (CMP) (Collection Date & Time - 07/24/2024 09:25 AM)?gluc 121* Value Reference Range A /G Ratio 2.5 1.1-2.5 - * A lbumin 4.5 3.5-5.3 - g/dL * A lkaline Phosphatase 78 40-129 - IU/L * A LT (SGPT) 24 <5-55 - IU/L * A ST (SGOT) 19 <5-46 - IU/L * B ilirubin, Total 0.3 <0.2-1.2 - mg/dL * B UN 15 6-20 - mg/dL * C alcium 9.5 8.6-10.4 - mg/dL * C hloride 105 97-108 - mmol/L * C O2 26 22-32 - mmol/L * C reatinine 0.85 0.70-1.30 - mg/dL * G lucose 121 H 65-99 - mg/dL * P otassium 5.2 3.5-5.3 - mmol/L * S odium 139 135-145 - mmol/L * P rotein 6.3 6.0-8.3 - g/dL * e GFR by Creatinine 102 >59 - mL/min/1.73m2 * Noreen Bundy 07/25/2024 9:50 :00 AM >See phone encounter ?LAB: P-Microalbumin/Creatinine, Random Urine Sample (Collection Date & Time - 07/24/2024 09:25 AM)?Normal* Value Reference Range A lbumin/Creatinine Ratio, Urine <10.7 0-30 - ug /mg * C reatinine, Urine 27.9 - mg/dL * M icroalbumin, Urine, Random <0.3 - mg/dL * Noreen Bundy 07/25/2024 9:50 :00 AM >See phone encounter * Immunizations: Tetanus Tdap-Adacel (over 7yrs) : 0.5 mL (Route: Intramuscular) given by Stephania Stewart on Right Deltoid * Labs: * L ab: Glycohemoglobin A1c (in house) (Collection Date & Time - 07/24/2024) 6 .7% Value Reference Range g lycohemoglobin 6.7% 5 - 6.5 % * America Watson 07/24/2024 9:41 :44 AM > Provider reviewed results while patient in office. Noreen Bundy 07/25/2024 9:50:00 AM >See phone encounter * Procedure Codes: 8 3036 GLYCATED HEMOGLOBIN TEST, Modifiers: QW * Follow Up: 4 Months * Images: Billing Information: * Visit Code: 20851 Office Visit, Est Pt., Level 4. * Procedure Codes: 74594 GLYCATED HEMOGLOBIN TEST. Modifiers: QW * Electronic signature of Steff Ace MD on 07/16/2025 at 08:54 AM EST Sign off status: Pending * Provider: Steff Ace M.D. Date: Generated for Ritai michelle/Bismark/eTransmitting on: 09/16/2024 08:54 AM EST History and Physical Notes * HPI (History of Present Illness) Category Sub-Category Detail Notes Category Not es Cardiology Short of Breath Chest Pain Palpitations Dizziness Examination Category Sub-Category Detail Notes Category Not es General Examination HEENT: unremarkable Heart: RSR Lungs: clear to auscultatio n Abdomen: soft and nontender, no organomegaly or masses Extremities: no leg edema General Appearance: NAD Skin: normal, no rash Neurologic Exam: Intact, gait normal Neck: supple, no lymphaden opathy Oral cavity: no lesions, mucosa m oist and WNL, no erythema Peripheral pulses: normal Back: normal Chest: normal shape and exp ansion
--- OUTSIDE RECORDS SUMMARY | 2024-11-13 04:45 | XMS_ITS ---
Author Organization [facility] Address [address] [place] [id number] Care Team Providers Care Power Plant Supervisor Name Role Phone Steff Ace Primary Care Provider [phone] Allergies No Known Allergies Results Component Value Reference Range Notes P-Comprehensive Metabolic Pa alex (CMP) Reviewed date:12/08/2024 01:11:50 PM Interpretation:gluc 129 Performing Lab: Notes/Report: CLIA: [id number] Everette Dee MD, Cd Storage And Materials Make Up Helper [facility] , [address], [place] [address] Test performed by [facility], [facility] Sodium 139 135-145 mmol/L Potassium 5.2 3.5-5.3 mmol/L Chloride 103 97-108 mmol/L CO2 26 22-32 mmol/L Glucose 129 65-99 mg/dL BUN 16 6-20 mg/dL Creatinine 0.94 0.70-1.30 mg/dL Calcium 9.5 8.6-10.4 mg/dL eGFR by Creatinine 95 >59 mL/min/1.73m2 Protein 6.5 6.0-8.3 g/dL Albumin 4.5 3.5-5.3 g/dL Alkaline Phosphatase 94 40-129 IU/L ALT (SGPT) 29 <5-55 IU/L AST (SGOT) 20 <5-46 IU/L Bilirubin, Total 0.4 <0.2-1.2 mg/dL A/G Ratio 2.3 1.1-2.5 P-Hemoglobin A1C Reviewed date:12/08/2024 01:11:50 PM Interpretation:7.3 Performing Lab: Notes/Report: Test performed by [facility] [address] [place] [address] , [facility] C, [place] [address] Everette Dee MD, Cd Storage And Materials Make Up Helper CLIA: [id number] Hemoglobin A1C 7.3 <5.7 % The following HbA1c ranges recommended by the [place] [employer] (ADA) may be used as an aid in the diagnosis of diabetes mellitus. HbA1c Suggested Diagnosis >=6.5% Diabetic 5.7% - 6.4% Pre-Diabetic <5.7% Non-Diabetic P-Microalbumin/Creatinine, R andom Urine Sample Reviewed date:12/08/2024 01:11:50 PM Interpretation:Normal Performing Lab: Notes/Report: Test performed by [facility] [address] [place] [address] , [facility] [place] [id number] Everette Dee MD, Cd Storage And Materials Make Up Helper CLIA: [id number] Albumin/Creatinine Ratio, Urine <5.08 0-30 ug/m g Microalbumin, Urine, Random <0.3 Creatinine, Urine 59.0 Estimated Average Glucose Reviewed date:12/08/2024 01:11:50 PM Interpretation:163 Performing Lab: Notes/Report: Test performed by [facility] [address] [place] [address] , [facility], [place] [address] Everette Dee MD, Cd Storage And Materials Make Up Helper CLIA: [id number] Estimated Average Glucose (eAG) 163 Estimated Average Glucose (eAG) is calculated using the equation eAG = (28.7 x HbA1c) - 46.7 based on the guidelines established by the ADA. If the patient has certain diseases including kidney disease, sickle cell anemia, thalassemia, or is taking medications such as dapsone, erythropoietin, or iron, eAG should not be evaluated. REASON FOR VISIT 4 month ckup, Needs labs, diabetic eye exam, & shingles vaccine Medications Medication SIG (Take, Route, Frequency, Duration) Notes Start Date End Date Status Aspirin Adult Low Strength 81 MG 1 tab(s) orally once a day; Duration: 30 day(s) 03/19/2021 Active B-12 1000 MCG 1 tab(s) orally once a day 2000 mcg a day 10/24/2020 Active Farxiga 10 MG 1 tablet Orally Once a day; Duration: 30 day(s) 07/24/2024 Active metFORMIN HCl 850 mg TAKE ONE TABLET BY MOUTH EVERY DAY with a meal; Duration: 90 Active Super B-Complex - as directed Orally Active Problems Problem Type SNOMED Code ICD Code Onset Dates Problem Status W/U Status Risk Notes Problem Xanthelasma of right lower eyelid (182073283700186 ) Xanthelasma of right lower eyelid (H02.62) Active confirmed Vital Signs Blood pressure systolic 132 mm Hg 11/14/19 25 Blood pressure diastolic 82 mm Hg 025 Heart Rate 54 /min 11/13/2024 Height 74.50 in 11/13/2024 Weight 249.2 lbs 11/13/2024 BMI 31.56 kg/m2 11/13/2024 Encounters Encounter Location Date Provider Diagnosis [facility] [facility] 36 [facility] [address] [place] [id number] 11/13/2024 Steff Ace Type 2 diabetes mellitus without complication, without long-term current use of insulin E11.9 ; Hyperlipidemia, unspecified E78.5 ; BMI 31.0-31.9,adult Z68.31 and Xanthelasma of right lower eyelid H02.62 Assessments Encounter Date Diagnosis (ICD Code) Assessment Notes Treatment Notes Treatment Clinical Notes Section Notes 11/13/2024 Type 2 diabetes mellitus without complication, without long-term current use of insulin (ICD-10 - E11.9) 11/13/2024 Hyperlipidemia, unspecified (ICD-10 - E78.5) 11/13/2024 BMI 31.0-31.9,adult (ICD-10 - Z68.31) 11/13/2024 Xanthelasma of right lower eyelid (ICD-10 - H02.62) Plan Of Treatment Medication Medication Name Sig Start Date Stop Date Notes metFORMIN HCl 850 mg TAKE ONE TABLET BY MOUTH EVERY DAY with a meal; Duration: 90 Next Appt Details Follow Up: 4 Months, Reason: Provider Name:Steff Washington er, 09/21/2025 10:15:00 AM, [address] [facility] 36 [facility], [address], [place], [phone], Progress Notes * BETTY GaryJignaOB:1970 ([age] yo M)Acc No.[id number]:11/13/2024 Progress Notes Patient: W JACKIE, Huy Provider: Steff Ace M.D. :1970 A ge:54 Y S ex:Male Date:11/13/2024 Address:[address] [place] [address] J[place]MAINE ISLAS, [id number] Subjective: * Chief Complaints: * 1 . 4 month ckup. 2. Needs labs, diabetic eye exam, & shingles vaccine. * HPI: C ardiology: The patient is here today for a check-up on Hypertension and Diabetes. Pt states he is doing good and denies any new concerns today. Pt states he does not check his BP nor his glucose at home. Pt is fasting. Denies : Chest Pain. [...] DAY with a meal , Taking Farxiga 10 MG Tablet 1 tablet Orally Once a day , Medication List reviewed and reconciled with the patient * Allergies: N .K.D.A. Objective: * Vitals: W t: 249.2, Temp: 98.2, BP: 132/82, HR: 54, Nurse: TENNILLE, Ht: 74.50, BMI:31.56. * Examination: G eneral Examination: General Appearance: N AD. H EENT: u nremarkable, right infraorbital xantholasma lesion 4 mm. O ral cavity: n o lesions, mucosa moist and [...] n ormal . B ack: normal. E xtremities:?no leg edema. Assessment: * Assessment: 1. H yperlipidemia, unspecified - E78.5 2 . T ype 2 diabetes mellitus without complication, without long-term current use of insulin - E11.9 3 . B NV 31.0-31.9,adult - Z68.31 4 . X anthelasma of right lower eyelid - H02.62 ? Plan: * Treatment: Value Reference Range A /G Ratio 2.3 1.1-2.5 - * A lbumin 4.5 3.5-5.3 - g/dL * A lkaline Phosphatase 94 40-129 - IU/L * A LT (SGPT) 29 <5-55 - IU/L * A ST (SGOT) 20 <5-46 - IU/L * B ilirubin, Total 0.4 <0.2-1.2 - mg/dL * B UN 16 6-20 - mg/dL * C alcium 9.5 8.6-10.4 - mg/dL * C hloride 103 97-108 - mmol/L * C O2 26 22-32 - mmol/L * C reatinine 0.94 0.70-1.30 - mg/dL * G lucose 129 H 65-99 - mg/dL * P otassium 5.2 3.5-5.3 - mmol/L * S odium 139 135-145 - mmol/L * P rotein 6.5 6.0-8.3 - g/dL * e GFR by Creatinine 95 >59 - mL/min/1.73m2 * Joann Montilla 12/08/2024 01: 11:42 PM > See phone encounter ?LAB: P-Hemoglobin A1C (Collection Date & Time - 11/13/2024 09:38 AM)?7.3* Value Reference Range H emoglobin A1C 7.3 H <5.7 - % * Joann Montilla 12/08/2024 01: 11:42 PM > See phone encounter ?LAB: P-Microalbumin/Creatinine, Random Urine Sample (Collection Date & Time - 11/13/2024 09:38 AM)?Normal* Value Reference Range A lbumin/Creatinine Ratio, Urine <5.08 0-30 - ug /mg * C reatinine, Urine 59.0 - mg/dL * M icroalbumin, Urine, Random <0.3 - mg/dL * Joann Montilla 12/08/2024 01: 11:42 PM > See phone encounter * Labs: * L ab: Estimated Average Glucose (Collection Date & Time - 11/13/2024 09:38 AM) 1 63 Value Reference Range E stimated Average Glucose 163 - mg/dL * [facility], IT support 11/14/2024 07:30:08 : This order was created by the Interface. Joann Montilla 12/08/2024 01:11:42 PM > See phone encounter * Procedure Codes: 3 051F HG A1C>EQUAL 7.0%<8.0%, 3075F SYST BP GE 130 - 139MM HG, 3079F DIAST BP 80- 89 MM HG * Follow Up: 4 Months * Images: Billing Information: * Visit Code: 96608 Office Visit, Est Pt., Level 4. * Procedure Codes: 3051F HG A1C>EQUAL 7.0%<8.0%. 3075F SYST BP GE 130 - 139MM HG. 3079F DIAST BP 80-89 MM HG. * Electronic signature of Steff Ace MD on 07/16/2025 at 08:54 AM EST Sign off status: Pending * Provider: Steff Ace M.D. Date: 0 11/13/2024 Generated for Printi ng/[employer]/eTransmitting on: 1 09/16/2024 08:54 AM EST History and Physical Notes * HPI (History of Present Illness) Category Sub-Category Detail Notes Category Not es Cardiology Short of Breath Chest Pain Palpitations Dizziness Examination Category Sub-Category Detail Notes Category Not es General Examination HEENT: unremarkable , right infraorbital xantholasma lesion 4 mm Heart: RSR Lungs: clear to auscultatio n [...]
--- OUTSIDE RECORDS SUMMARY | 2025-04-11 10:15 | XMS_ITS ---
Author Organization [facility] Address [address] [facility] 36 [facility] [address] [place] [phone] Care Team Providers Care Viscosity Inspector Name Role Phone Steff Ace Primary Care Provider Tano Grossman Unavailable [phone] Allergies No Known Allergies REASON FOR VISIT swelling on LT side Medications Medication SIG (Take, Route, Frequency, Duration) Notes Start Date End Date Status Super B-Complex - as directed Orally Active Aspirin Adult Low Strength 81 MG 1 tab(s) orally once a day; Duration: 30 day(s) 03/19/2021 Active B-12 1000 MCG 1 tab(s) orally once a day 2000 mcg a day 10/24/2020 Active Farxiga 10 MG 1 tablet Orally Once a day; Duration: 30 days Active metFORMIN HCl 850 mg TAKE ONE TABLET BY MOUTH EVERY DAY with a meal; Duration: 90 Active Vital Signs Blood pressure systolic 130 mm Hg 04/11/20 25 Blood pressure diastolic 80 mm Hg 025 Heart Rate 70 /min 04/11/2025 Height 74.50 in 04/11/2025 Weight 249.0 lbs 04/11/2025 BMI 31.54 kg/m2 04/11/2025 Encounters Encounter Location Date Provider Diagnosis [facility] [address] [facility] [address] [place] [id number] 04/11/2025 Tano Grossman Left inguinal pain R10.32 Assessments Encounter Date Diagnosis (ICD Code) Assessment Notes Treatment Notes Treatment Clinical Notes Section Notes 04/11/2025 Left inguinal pain (ICD-10 - R10.32) Spoke to Dr. Campoverde vocational evaluator for general surgery who recommends evaluation in the ER. Spoke to Dr. Donohue in the ER. She will see patient and evaluation for treatment. Plan Of Treatment Treatment Notes Assessment Notes Left inguinal pain Spoke to Dr. Campoverde vocational evaluator for general surgery who recommends evaluation in the ER. Spoke to Dr. Donohue in the ER. She will see patient and evaluation for treatment. Next Appt Details Provider Name:Steff [place] er, 09/21/2025 10:15:00 AM, [address] [facility] [address], [address], [place], [place], [phone], Progress Notes * Donna ELLIOTTOB:1970 ([age] yo M)Acc No.[id number]:04/11/2025 Progress Notes Patient: Huy ARENAS Provider: Karan Grossman M.D. :1970 A ge:54 Y S ex:Male Date:04/11/2025 Address:[address] [place] [address] , [id number] Pcp:Steff Ace Subjective: * Chief Complaints: * 1 . swelling on LT side. * HPI: M christopher Reproductive: 54 year old male presents with c/o testicular swelling P t states on 04/10 he noticed a knot on his left groin area. Pt states it has radiated to testicle. Pt states he does have some discomfort in the area. * Medical History: T ype 2 diabetes, Hyperlipidemia, Vitamin B 12 deficiency. * Surgical History: g allbladder 2002, Hemorrhoidectomy- Dr Steven Fernando 09/11/2021, Colonoscopy per Dr. Quinn . * Hospitalization/Major Diagno stic Procedure: D enies Past Hospitalization. * Family History: F ather: , heart disease, alcohol abuse. M other: alive, arthritis, heart disease.?Siblings: sister , of a tumor on her spine at 38. 1 brother(s) , 1 sister(s) . 1 son(s) . . * Social History: C URRENT TOBACCO USE: Yes S moking Status: Patient does smoke, number [...] N .K.D.A. Objective: * Vitals: W t: 249.0, Temp: 97.9, BP: 130/80, HR: 70, Nurse: EDMUNDO, Ht: 74.50, BMI:31.54. * Examination: G eneral Examination: General Appearance: N AD. H eart: R SR. L ungs:?clear to auscultation. E xtremities: I ncreased size of left hemiscrotum, bulged area tracks down from the lower abdomen, seems to have a hernia, unable to reduce due to pain. Assessment: * Assessment: 1. L eft inguinal pain - R10.32 (Primary) Plan: * Treatment: * Procedure Codes: 3 075F SYST BP GE 130 - 139MM HG, 3079F DIAST BP 80-89 MM HG * Images: Billing Information: * Visit Code: 08260 Office Visit, Est Pt., Level 4. * Procedure Codes: 3075F SYST BP GE 130 - 139MM HG. 3079F DIAST BP 80-89 MM HG. * Electronic signature of Nina Grossman MD on 07/16/2025 at 08:53 AM EST Sign off status: Pending * Provider: Karan Grossman M.D. Date: 0 04/11/2025 Generated for Teja martinez/Bismark/Luis F on: 09/16/2024 08:53 AM EST History and Physical Notes * HPI (History of Present Illness) Category Sub-Category Detail Notes Category Not es Male Reproductive testicular swelling Pt states on 04/10 he noticed a knot on his left groin area. Pt states it has radiated to testicle. Pt states he does have some discomfort in the area Examination Category Sub-Category Detail Notes Category Not es General Examination Heart: RSR Lungs: clear to auscultatio n Extremities: Increased size of le ft hemiscrotum, bulged area tracks down from the lower abdomen, seems to have a hernia, unable to reduce due to pain General Appearance: NAD
--- OUTSIDE RECORDS SUMMARY | 2025-04-26 05:30 | XMS_ITS ---
Author Organization [facility] Address [address] [facility] [address] [facility] [address] [place] [id number] Care Team Providers Care Sas Architect Name Role Phone Steff Ace Primary Care Provider Tano Grossman Unavailable [phone] Allergies No Known Allergies REASON FOR VISIT med surg f/u Medications Medication SIG (Take, Route, Frequency, Duration) Notes Start Date End Date Status Super B-Complex - as directed Orally Active Cyclobenzaprine HCl 5 MG 1 tablet Orally 3 times a day As needed 04/26/2025 Active metFORMIN HCl 850 mg TAKE ONE TABLET BY MOUTH EVERY DAY with a meal; Duration: 90 Active Aspirin Adult Low Strength 81 MG 1 tab(s) orally once a day; Duration: 30 day(s) 03/19/2021 Active B-12 1000 MCG 1 tab(s) orally once a day 2000 mcg a day 10/24/2020 Active Vital Signs Blood pressure systolic 128 mm Hg 04/26/20 25 Blood pressure diastolic 82 mm Hg 025 Heart Rate 90 /min 04/26/2025 Height 74.50 in 04/26/2025 Weight 248.2 lbs 04/26/2025 BMI 31.44 kg/m2 04/26/2025 Encounters Encounter Location Date Provider Diagnosis [facility] [address] [facility] [address] [place] [id number] 04/26/2025 Tano Grossman Abscess, perineum L02.215 ; Acute right-sided low back pain without sciatica M54.50 and Muscle spasm of back M62.830 Assessments Encounter Date Diagnosis (ICD Code) Assessment Notes Treatment Notes Treatment Clinical Notes Section Notes 04/26/2025 Abscess, perineum (ICD-10 - L02.215) Keep follow up with Dr. Campoverde 04/26/2025 Acute right-sided low back pain without sciatica (ICD-10 - M54.50) heating pad to affected areas 2 to 3 times a day TENS unit OTC recommended 04/26/2025 Muscle spasm of back (ICD-10 - M62.830) 04/26/2025 Other Discharge summary with available lab/diagnostic imaging results obtained and reviewed. Discharge medication list reconciled. Appropriate counseling provided. Moderate Complexity Plan Of Treatment Medication Medication Name Sig Start Date Stop Date Notes Cyclobenzaprine HCl 5 MG 1 tablet Orally 3 times a day 08/2024 Treatment Notes Assessment Notes Abscess, perineum Keep follow up with Dr. Campoverde Acute right-sided low back p ain without sciatica heating pad to affected areas 2 to 3 easton es a day TENS unit OTC recommended Other Discharge summary wi th available lab/diagnostic imaging results obtained and reviewed. Discharge medication list reconciled. Appropriate counseling provided. Moderate Complexity Next Appt Details Follow Up: as scheduled,and prn, Reason: Provider Name:Steff Washington , 09/21/2025 10:15:00 AM, [address], [place], [place], [id number], Progress Notes * [facility]:1970 ([age] [facility] M)Acc No.[id number]:04/26/2025 Progress Notes Patient: Huy ARENAS Provider: Karan Grossman M.D. :1970 A ge:54 Y S ex:Male Date:04/26/2025 Address:[address] [place] [address], [place], [place] Pcp:Steff Ace Subjective: * Chief Complaints: * 1 . Med surg f/u. * HPI: H PI: Patient is here today for a Transition of Care Visit. Discharge from the following Facility: Patient was admitted to [facility] 04/11/2025 due to Perineal Abcess with subsequent incision and drainage , Discharge date: 04/12/2025 ,Date of phone contact following discharge: 04/13/2025. Pt states he is still healing but is doing well and does not have any concerns at this time. Pt states he has stopped taking Farxiga due to his concerns of the medication possibly causing Perineal abcess. * Medical History: T ype 2 diabetes, [...] MOUTH EVERY DAY with a meal , Discontinued Farxiga 10 MG Tablet 1 tablet Orally Once a day , Medication List reviewed and reconciled with the patient * Allergies: N .K.D.A. Objective: * Vitals: W t: 248.2, Temp: 98.1, BP: 128/82, HR: 90, Nurse: rika, Ht: 74.50, BMI:31.44. * Examination: G eneral Examination: General Appearance: N AD. H eart: R SR. L ungs:?clear to auscultation. B ack: r ight lower lumbar paraspinal muscle spasms. Assessment: * Assessment: 1. A bscess, perineum - L02.215 (Primary) 2 . A cute right-sided low back pain without sciatica - M54.50 3 . M uscle spasm of back - M62.830 ? Plan: * Treatment: 2. A cute right-sided low back pain without sciatica Notes: heating pad to affected areas 2 to 3 times a day TENS unit OTC recommended 3. M uscle spasm of back Start Cyclobenzaprine HCl Tablet, 5 MG, 1 tablet, Orally, 3 times a day As needed, 30, Refills 0.? 4. O thers Notes: Discharge summary with available lab/diagnostic imaging results obtained and reviewed. Discharge medication list reconciled. Appropriate counseling provided. Moderate Complexity * Procedure Codes: 9 9495 TRANS CARE MGMT 14 DAY DISCH, 1111F DSCHR MED/CURENT MED MERGE, 3074F SYST BP LT 130 MM HG, 3079F DIAST BP 80-89 MM HG * Follow Up: a s scheduled,and prn * Images: Billing Information: * Visit Code: 72156 Office Visit, Est Pt., Level 3. * Procedure Codes: 71190 TRANS CARE MGMT 14 DAY DISCH. 1111F DSCHR MED/CURENT MED MERGE. 3074F SYST BP LT 130 MM HG. 3079F DIAST BP 80-89 MM HG. * Electronic signature of Nina Grossman MD on 07/16/2025 at 08:54 AM EST Sign off status: Pending * Provider: Karan Grossman M.D. Date: Generated for Teja martinez/Bismark/Damionitting on: 09/16/2024 08:54 AM EST History and Physical Notes * HPI (History of Present Illness) Category Sub-Category Detail Notes Category Not es HPI [facility]. Discharge from the following Facility: Patient was admitted to [facility] 04/11/2025 due to Perineal Abcess with subsequent incision and drainage ,Discharge date: 04/12/2025 ,Date of phone contact following discharge: 04/13/2025. Pt states he is still healing but is doing well and does not have any concerns at this time. Pt states he has stopped taking Farxiga due to his concerns of the medication possibly causing Perineal abcess Examination Category Sub-Category Detail Notes Category Not es General Examination Heart: RSR Lungs: clear to auscultatio n General Appearance: NAD Back: right lower lumbar p araspinal muscle spasms
--- OUTSIDE RECORDS SUMMARY | 2025-06-18 05:00 | XMS_ITS ---
[facility] Address [address] [place] [id number] Care Team Providers Care Transverse Abdominal Muscle Nurse Name Role Phone Steff Ace Primary Care Provider Allergies No Known Allergies Results Component Value Reference Range Notes Glycohemoglobin A1c (in hous e) Reviewed date:06/18/2025 02:18:45 PM Interpretation:7.6 Performing Lab: Notes/Report: 7.6 glycohemoglobin 7.6% 5 - 6.5 % P-Comprehensive Metabolic Pa alex (CMP) Reviewed date:06/19/2025 08:28:43 AM Interpretation:Glu 134 Performing Lab: Notes/Report: Test performed by [facility] [address] [place] [address] , [address], [place] [address] Gricelda Rosales MD, PhD, [facility], Blending Plant Operator CLIA: [id number] Sodium 139 135-145 mmol/L Potassium 4.9 3.5-5.3 mmol/L Chloride 105 97-108 mmol/L CO2 25 20-32 mmol/L Glucose 134 65-99 mg/dL BUN 13 6-20 mg/dL Creatinine 0.84 0.70-1.30 mg/dL Calcium 9.2 8.6-10.4 mg/dL eGFR by Creatinine 102 >59 mL/min/1.73m2 Protein 6.3 6.0-8.3 g/dL Albumin 4.4 3.5-5.3 g/dL Alkaline Phosphatase 97 44-138 IU/L ALT (SGPT) 21 <5-55 IU/L AST (SGOT) 16 <5-46 IU/L Bilirubin, Total 0.3 <0.2-1.2 mg/dL A/G Ratio 2.3 1.1-2.5 P-PSA Reviewed date:06/19/2025 08:28:43 AM Interpretation:Normal Performing Lab: Notes/Report: Test performed by [facility] [address] [place] [address] , [address], [place] [address] Gricelda Rosales MD, PhD, [facility], Blending Plant Operator CLIA: [id number] PSA 0.29 <4.00 ng/mL This test is performed by the Ad ECLIA methodology. Values obtained with different assay methods or kits cannot be directly compared. Please note this is an ultrasensitive PSA assay with a lower limit of detection of 0.014 ng/mL. REASON FOR VISIT 4 month f/u, Needs labs with PSA, diabetic eye exam, low dose chest CT, shingles, & flu vaccines Medications Medication SIG (Take, Route, Frequency, Duration) Notes Start Date End Date Status Aspirin Adult Low Strength 81 MG 1 tab(s) orally once a day; Duration: 30 day(s) 03/19/2021 Active B-12 1000 MCG 1 tab(s) orally once a day 2000 mcg a day 10/24/2020 Active metFORMIN HCl 850 mg TAKE ONE TABLET BY MOUTH EVERY DAY with a meal; Duration: 90 days Active Super B-Complex - as directed Orally Active Immunizations Vaccine Route Administration Date Status Comme nts Shingrix IM Intramuscular 06/18/2025 Administered Problems Problem Type SNOMED Code ICD Code Onset Dates Problem Status W/U Status Risk Notes Problem BMI 30+ - obesity (754827116) BMI 32.0-32.9,a dult (Z68.32) Active confirmed Vital Signs Blood pressure systolic 124 mm Hg 06/18/20 25 Blood pressure diastolic 78 mm Hg 025 Heart Rate 55 /min 06/18/2025 Height 74.50 in 06/18/2025 Weight 253.2 lbs 06/18/2025 BMI 32.07 kg/m2 06/18/2025 Encounters Encounter Location Date Provider Diagnosis [facility] [address] [place] [id number] 06/18/2025 Steff Ace Type 2 diabetes mellitus without complication, without long-term current use of insulin E11.9 ; Benign prostatic hyperplasia without lower urinary tract symptoms N40.0 ; Vitamin B12 deficiency E53.8 ; BMI 32.0-32.9,adult Z68.32 ; Tobacco use Z72.0 ; Need for vaccination Z23 and Encounter for vaccination Z23 Assessments Encounter Date Diagnosis (ICD Code) Assessment Notes Treatment Notes Treatment Clinical Notes Section Notes 06/18/2025 Type 2 diabetes mellitus without complication, without long-term current use of insulin (ICD-10 - E11.9) 06/18/2025 Benign prostatic hyperplasia without lower urinary tract symptoms (ICD-10 - N40.0) 06/18/2025 Vitamin B12 deficiency (ICD-10 - E53.8) 06/18/2025 BMI 32.0-32.9,adult (ICD-10 - Z68.32) 06/18/2025 Tobacco use (ICD-10 - Z72.0) 06/18/2025 Need for vaccination (ICD-10 - Z23) 06/18/2025 Encounter for vaccination (ICD-10 - Z23) Plan Of Treatment Medication Medication Name Sig Start Date Stop Date Notes metFORMIN HCl 850 mg TAKE ONE TABLET BY MOUTH EVERY DAY with a meal; Duration: 90 days Next Appt Details Follow Up: 3 Months, Reason: Provider Name:Steff [place] , 09/21/2025 10:15:00 AM, [address], [address], [place], [place], [id number], Progress Notes * Gary ELLIOTTJignaOB:1970 ([age] yo M)Acc No.[id number]:06/18/2025 Progress Notes Patient: Huy ARENAS Provider: Steff Ace M.D. :1970 A ge:54 Y S ex:Male Date:06/18/2025 Address:[address] [place] [address], [place] [id number] Subjective: * Chief Complaints: * 1 . 4 month f/u. 2. Needs labs with PSA, diabetic eye exam, low dose chest CT, shingles, & flu vaccines. * HPI: C ardiology: The pt is here for a check-up on Hyperlipidemia and Diabetes. Pt states he is doing good and denies any new concerns. Pt is fasting. Pt states he is needing a refill for Metformin sent to clinic pharmacy. Denies : Chest Pain. D enies : Short of Breath. D enies : Dizziness. D enies : Palpitations. E ndocrinology: Stopped Farxiga after perineal abcess. will be scheduling eye exam soon. * ROS: C ONSTITUTIONAL: Positive for A jamalher physician seen since last visit? Yes, Change in medication since last visit? Yes, Are you taking antibiotics? No, Are you taking steroids? No. D ERMATOLOGY: no R yung. n o H charisma. G ASTROENTEROLOGY: no N ausea. n o V omiting. n o D iarrhea.? U ROLOGY: no D ifficulty urinating. n o B lood in urine. * Medical History: T ype 2 diabetes, [...] EVERY DAY with a meal , Discontinued Cyclobenzaprine HCl 5 MG Tablet 1 tablet Orally 3 times a day As needed, Medication List reviewed and reconciled with the patient * Allergies: N .K.D.A. Objective: * Vitals: W t: 253.2, Temp: 97.8, BP: 124/78, HR: 55, Nurse: TENNILLE, Ht: 74.50, BMI:32.07. * Examination: G eneral Examination: General Appearance: N AD. H EENT: u nremarkable, xantholasma right infraorbital. O ral cavity: n o lesions, mucosa moist and WNL, no erythema.?Neck: s upple, no lymphadenopathy. C hest: n ormal shape and expansion. H eart: R SR. L ungs: c lear to auscultation. A bdomen: soft and nontender, no organomegaly or masses. N eurologic Exam: I ntact, gait normal. S kin: n ormal, no rash.?Peripheral pulses: n ormal . B ack: normal. E xtremities: n o leg edema. Assessment: * Assessment: 1. T ype 2 diabetes mellitus without complication, without long-term current use of insulin - E11.9 (Primary) 2 . B enign prostatic hyperplasia without lower urinary tract symptoms - N40.0 3 . V itamin B12 deficiency - E53.8 4 . B VT 32.0-32.9,adult - Z68.32 5 . T obacco use - Z72.0 6 . N eed for vaccination - Z23 7 . E ncounter for vaccination - Z23 Plan: * Treatment: Value Reference Range A /G Ratio 2.3 1.1-2.5 - * A lbumin 4.4 3.5-5.3 - g/dL * A lkaline Phosphatase 97 44-138 - IU/L * A LT (SGPT) 21 <5-55 - IU/L * A ST (SGOT) 16 <5-46 - IU/L * B ilirubin, Total 0.3 <0.2-1.2 - mg/dL * B UN 13 6-20 - mg/dL * C alcium 9.2 8.6-10.4 - mg/dL * C hloride 105 97-108 - mmol/L * C O2 25 20-32 - mmol/L * C reatinine 0.84 0.70-1.30 - mg/dL * G lucose 134 H 65-99 - mg/dL * P otassium 4.9 3.5-5.3 - mmol/L * S odium 139 135-145 - mmol/L * P rotein 6.3 6.0-8.3 - g/dL * e GFR by Creatinine 102 >59 - mL/min/1.73m2 * Joann Montilla 06/19/2025 08 :28:35 AM EST > See phone encounter ?LAB: Glycohemoglobin A1c (in house) (Collection Date & Time - 06/18/2025)? 7.6* Value Reference Range g lycohemoglobin 7.6% 5 - 6.5 % * Stephania Stewart 06/18/2025 1 1:26:32 AM EST > Provider reviewed results while patient in office. 2.?Benign prostatic hyperplasia without lower urinary tract symptoms?LAB: P-PSA (Collection Date & Time - 06/18/2025 09:10 AM)?Normal* Value Reference Range P SA 0.29 <4.00 - ng/mL * Joann Montilla 06/19/2025 08 :28:35 AM EST > See phone encounter * Immunizations: Shingrix : 0.5 (Route: Intramuscular) given by Stephania Stewart on Right Deltoid (Encounter for vaccination) * Procedure Codes: 8 3036 GLYCATED HEMOGLOBIN TEST, Modifiers: QW , 80329 VENIPUNCT, ROUTINE*, 3051F HG A1C>EQUAL 7.0%<8.0% * Follow Up: 3 Months * Images: Billing Information: * Visit Code: 81990 Office Visit, Est Pt., Level 4. * Procedure Codes: 00085 GLYCATED HEMOGLOBIN TEST. Modifiers: QW 24465 VENIPUNCT, ROUTINE*. 3051F HG A1C>EQUAL 7.0%<8.0%. * Electronic signature of Steff Ace MD on 07/16/2025 at 08:54 AM EST Sign off status: Pending * Provider: Steff Ace M.D. Date: 1 08/18/2024 Generated for Printi ng/Faxing/eTransmitting on: 09/16/2024 08:54 AM EST History and Physical Notes * HPI (History of Present Illness) Category Sub-Category Detail Notes Category Not es Cardiology Short of Breath Chest Pain Palpitations Dizziness Examination Category Sub-Category Detail Notes Category Not es General Examination HEENT: unremarkable , xantholasma right infraorbital Heart: RSR Lungs: clear to auscultatio n [...]
--- NOTE | 2025-07-16 08:54 | CT_ITS ---
FINAL REPORT CLINICAL HISTORY: TOBACCO USE CURRENT SMOKER 1PPD X39 YEARS COMPARISON: 01/26/2024 FINDINGS: CT CHEST LOW DOSE SCREENING HISTORY: Screening exam for lung cancer. 65-year-old male, current smoker, 35-nbwa-pxpb history. DOSE: CTDI vol: 2.90 mGy, DLP: 109.68 mGy*cm TECHNIQUE: Axial CT without IV contrast administration using low dose protocol. This study was performed with techniques to keep radiation doses as low as reasonably achievable, (ALARA). Individualized dose reduction techniques using automated exposure control or adjustment of mA and/or kV according to the patient's size were employed. No acute lung disease is present. There are 2 anterior nodules, 1 in the left upper lobe, the other in the right upper lobe, which are stable when compared to the prior exam, and both seen on image #42 of series 4. The nodule on the right measures 4 mm in size, the nodule on the left measures 3 mm in size. There are also stable bilateral intrafissural nodes present, the right intrafissural node larger than the left. No pleural or pericardial effusion is seen. No adenopathy or mass lesion is present. IMPRESSION: Stable nodules as described. LUNG RADS CATEGORY 2 RECOMMENDATION: 12 month LDCT follow up Reviewed, Interpreted and Dictated by Freedom Laura MD Transcribed by Emily Greer Authenticated and [facility][1]
--- OUTSIDE RECORDS SUMMARY | 2025-07-16 08:54 | XMS_ITS | Patient Health Record ---
Author Organization [facility] Address [address] [facility] [address] [place] [id number] Care Team Providers Care Inclusion Specialist Name Role Phone Steff Aceory Primary Care Provider [phone] Tano Grossman Unavailable [phone] Allergies No Known Allergies Results Component Value Reference Range Notes P-Comprehensive Metabolic Pa alex (CMP) Reviewed date:12/08/2024 01:11:50 PM Interpretation:gluc 129 Performing Lab: Notes/Report: Test performed by [facility] , [address], [place] [address] Everette Dee MD, Sql Etl Developer CLIA: [id number] Sodium 139 135-145 mmol/L Potassium 5.2 3.5-5.3 [...] Interpretation:7.3 Performing Lab: Notes/Report: Test performed by [facility] [address], [place] [address] Everette Dee MD, Sql Et[employer] Developer CLIA: [id number] Hemoglobin A1C 7.3 <5.7 % The following HbA1c ranges recommended by the [place] [employer] (ADA) may be used as an aid in the diagnosis of diabetes mellitus. HbA1c Suggested Diagnosis >=6.5% Diabetic 5.7% - 6.4% Pre-Diabetic <5.7% Non-Diabetic P-Microalbumin/Creatinine, R andom Urine Sample Reviewed date:12/08/2024 01:11:50 PM Interpretation:Normal Performing Lab: Notes/Report: Test performed by [facility] [address] [place] [address] , [place] [id number] Everette Dee MD, Sql Etl Developer CLIA: [id number] Albumin/Creatinine Ratio, Urine <5.08 0-30 ug/m g Microalbumin, Urine, Random <0.3 Creatinine, Urine 59.0 Estimated Average Glucose Reviewed date:12/08/2024 01:11:50 PM Interpretation:163 Performing Lab: Notes/Report: Test performed by [facility] [address] [place] [address] [facility] [place] [address] Everette Dee MD, Sql Etl Developer CLIA: [id number] Estimated Average Glucose (eAG) 163 Estimated Average Glucose (eAG) is calculated using the equation eAG = (28.7 x HbA1c) - 46.7 based on the guidelines established by the ADA. If the patient has certain diseases including kidney disease, sickle cell anemia, thalassemia, or is taking medications such as dapsone, erythropoietin, or iron, eAG should not be evaluated. P-Microalbumin/Creatinine, R andom Urine Sample Reviewed date:07/25/2024 09:50:04 AM Interpretation:Normal Performing Lab: Notes/Report: Test performed by [facility] [address] [place] [address] [address], [place] [address] Everette Dee MD, Sql Etl Developer CLIA: [id number] Albumin/Creatinine Ratio, Urine <10.7 0-30 ug/m g Microalbumin, Urine, Random <0.3 Creatinine, Urine 27.9 P-Lipid Panel Reviewed date:07/25/2024 09:50:04 AM Interpretation:trigs 184, hdl 36 Performing Lab: Notes/Report: Test performed by [facility] [address] [place] [address] , [address], [place] [address] Everette Dee MD, Sql Et[employer] Developer CLIA: [id number] Cholesterol 149 <200 mg/dL Triglycerides 184 <150 [...] Results: 76 Units: mg/dL % Change: +31% P-Comprehensive Metabolic Pa alex (CMP) Reviewed date:07/25/2024 09:50:04 AM Interpretation:gluc 121 Performing Lab: Notes/Report: Test performed by [facility] [address] [place] [address] , [facility] [address], [place] [address] Everette Dee MD, Sql Et[employer] Developer CLIA: [id number] Sodium 139 135-145 mmol/L Potassium 5.2 3.5-5.3 [...] 0.3 <0.2-1.2 mg/dL A/G Ratio 2.5 1.1-2.5 Glycohemoglobin A1c (in hous e) Reviewed date:07/25/2024 09:50:04 AM Interpretation:6.7% Performing Lab: Notes/Report: 6.7% glycohemoglobin 6.7% 5 - 6.5 % Glycohemoglobin A1c (in hous e) Reviewed date:06/18/2025 02:18:45 PM Interpretation:7.6 Performing Lab: Notes/Report: 7.6 glycohemoglobin 7.6% 5 - 6.5 % P-Comprehensive Metabolic Pa alex (CMP) Reviewed date:06/19/2025 08:28:43 AM Interpretation:Glu 134 Performing Lab: Notes/Report: Test performed by [facility] [address] [place] [address] , [place] [address] Gricelda Rosales MD, PhD, [facility], Sql Etl Developer CLIA: [id number] Sodium 139 135-145 mmol/L Potassium 4.9 3.5-5.3 [...] Interpretation:Normal Performing Lab: Notes/Report: Test performed by [facility] [address] [place] [address] , [address], [place] [address] Gricelda Rosales MD, PhD, [facility], Sql Etl Developer CLIA: [id number] PSA 0.29 <4.00 ng/mL This test is performed by the Ad ECLIA methodology. Values obtained with different assay methods or kits cannot be directly compared. Please note this is an ultrasensitive PSA assay with a lower limit of detection of 0.014 ng/mL. Medications Medication SIG (Take, Route, Frequency, Duration) [...] A (adult) IM Intramuscular 07/31/2013 Administer ed Shingrix IM Intramuscular 06/18/2025 Administered Tetanus Tdap-Adacel (over 7yrs) IM Intramuscular 07/31/2013 Administered Tetanus Tdap-Adacel (over 7yrs) IM Intramuscular 07/24/2024 Administered Typhoid vaccine IM Intramuscular 08/03/2013 Administered xFlu shot-36 months and older IM Intramuscular 07/07/2008 Administered xFluzone (6mos and older)-trivalent IM Intramuscular 07/31/2013 Administered Problems Problem Type SNOMED Code ICD Code Onset Dates Problem Status W/U Status Risk Notes Problem Vitamin B12 deficiency (401068773) Vitamin B12 deficiency (E53.8) Active confirmed Problem Bilateral caroti d bruits (R09.89) Active confirmed Problem BMI 30+ - obesity (095123841) BMI 32.0-32.9,adult (Z68.32) Active confirmed Problem Hyperlipidemia (88931039) Hyperlipidemia, unspecified (E78.5) Active confirmed Problem Xanthelasma of right lower eyelid (101362931147094) Xanthelasma of right lower eyelid (H02.62) Active confirmed Problem Abscess of skin and/or subcutaneous tissue caused by ingrown hair (disorder) (538531432) Pilonidal cyst with abscess (L05.01) Active confirmed Problem Hyperlipidemia due to type 2 diabetes mellitus (disorder) (222026365140708) Hyperlipidemia associated with type 2 diabetes mellitus (E11.69) Active confirmed Problem Hyperlipidemia (46171991) Hyperlipidemia, unspecified (E78.5) Active confirmed Problem Chronic fatigue syndrome (72371022) Chronic fatigue (R53.82) Active confirmed Problem Neoplasm of skin of neck (132143541) 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 confirmed Problem Body mass index 30.00 to 34.99 (449346561739950) BMI 31.0-31.9,adult (Z68.31) Active confirmed Problem Type II diabetes mellitus without complication (687920410) Type 2 diabetes mellitus without complication, without long-term current use of insulin (E11.9) Active confirmed Problem Benign prostatic hypertrophy without outflow obstruction (432872553) Benign prostatic hyperplasia without lower urinary tract symptoms (N40.0) Active confirmed Vital Signs Heart Rate 55 /min 06/18/2025 Blood pressure diastolic 78 mm Hg 06/18/2025 Height 74.50 in 06/18/2025 Blood pressure systolic 124 mm Hg 06/18/2025 Weight 253.2 lbs 06/18/2025 BMI 32.07 kg/m2 06/18/2025 Encounters Encounter Location Date Provider [facility] [address] [place] [id number] 07/24/2024 Steff Ace Hyperlipidemia associated with type 2 diabetes mellitus E11.69 ; Type 2 diabetes mellitus without complication, without long-term current use of insulin E11.9 and Encounter for immunization Z23 [facility] [address] [place], [place] [id number] 11/13/2024 Steff Ace Type 2 diabetes claire itus without complication, without long-term current use of insulin E11.9 ; Hyperlipidemia, unspecified E78.5 ; BMI 31.0-31.9,adult Z68.31 and Xanthelasma of right lower eyelid H02.62 [facility] [address] [place], [place] [id number] 04/11/2025 Tano Porum Left inguinal pain R10.32 [facility] [address] [place], [place] [id number] 04/26/2025 Tano Porum Abscess, perineum L02.215 ; Acute right-sided low back pain without sciatica M54.50 and Muscle spasm of back M62.830 [facility] [address] [place] [id number] 06/18/2025 Steff Ace Type 2 diabetes claire itus without complication, without long-term current use of insulin E11.9 ; Benign prostatic hyperplasia without lower urinary tract symptoms N40.0 ; Vitamin B12 deficiency E53.8 ; BMI 32.0-32.9,adult Z68.32 ; Tobacco use Z72.0 ; Need for vaccination Z23 and Encounter for vaccination Z23 [facility] [address] [place], [place] [id number] 07/25/2024 Steff Ace [facility] [address] [place], [place] [id number] 12/08/2024 Steff Ace [facility] [address] [place] [id number] 04/12/2025 Steff Ace [facility] [address] [place], [place] [id number] 04/30/2025 Steff Ace [facility] [address] [place], [place] [id number] 06/19/2025 Steff Ace Assessments Encounter Date Diagnosis (ICD Code) Assessment Notes Treatment Notes Treatment Clinical Notes Section Notes 07/24/2024 Hyperlipidemia associated with type 2 diabetes mellitus (ICD-10 - E11.69) 07/24/2024 Type 2 diabetes mellitus without complication, without long-term current use of insulin (ICD-10 - E11.9) 11/13/2024 Hyperlipidemia, unspecified (ICD-10 - E78.5) 04/26/2025 Acute right-sided low back pain without sciatica (ICD-10 - M54.50) heating pad to affected areas 2 to 3 times a day TENS unit OTC recommended 04/26/2025 Abscess, perineum (ICD-10 - L02.215) Keep follow up with Dr. Campoverde 11/13/2024 Type 2 diabetes mellitus without complication, without long-term current use of insulin (ICD-10 - E11.9) 04/11/2025 Left inguinal pain (ICD-10 - R10.32) Spoke to Dr. Campoverde manager investigations for general surgery who recommends evaluation in the ER. Spoke to Dr. Donohue in the ER. She will see patient and evaluation for treatment. 06/18/2025 Type 2 diabetes mellitus without complication, without long-term current use of insulin (ICD-10 - E11.9) 06/18/2025 Benign prostatic hyperplasia without lower urinary tract symptoms (ICD-10 - N40.0) 04/26/2025 Muscle spasm of back (ICD-10 - M62.830) 06/18/2025 Vitamin B12 deficiency (ICD-10 - E53.8) 07/24/2024 Encounter for immunization (ICD-10 - Z23) 11/13/2024 BMI 31.0-31.9,adult (ICD-10 - Z68.31) 11/13/2024 Xanthelasma of right lower eyelid (ICD-10 - H02.62) 06/18/2025 BMI 32.0-32.9,adult (ICD-10 - Z68.32) 06/18/2025 Tobacco use (ICD-10 - Z72.0) 06/18/2025 Need for vaccination (ICD-10 - Z23) 06/18/2025 Encounter for vaccination (ICD-10 - Z23) 04/26/2025 Other Discharge summary with available lab/diagnostic imaging results obtained and reviewed. Discharge medication list reconciled. Appropriate counseling provided. Moderate Complexity Plan Of Treatment Pending Test Test Name Order Date CT Scan : Chest, low dose 06/18/2025 Next Appt Details Provider Name:Steff [place] er, 09/21/2025 10:15:00 AM, [address] [facility], [address], [place], [place], [id number], Insurance Providers Payer Name Payer Address Payer Phone Subscriber Number Group Number Insured Name Patient Relationship to Insured Coverage Start Date Coverage End Date [employer] [address] [place] [address] [id number] [address] [place] [address] Huy Self - patient is the insured Medications Administered Medication Instructions Date of Administration Dosage Notes B-12 12/17/2020 1 mL Medical (General) History Medical History History ICD Code type 2 diabetes hyperlipidemia Vitamin B 12 deficiency Surgical History Surgery Date(Month/Year) gallbladder 2002 Hemorrhoidectomy- Dr Steven Fernando [address] Quinn
--- OUTSIDE RECORDS SUMMARY | 2025-07-16 08:54 | XMS_ITS | Clinical Summary ---
[facility] Organization [facility] Address [address] [place] [id number] Care Team Providers Care Compliance Clerk Name Role Phone Awais Ace MD Primary Care Provider [phone] Social History Tobacco Use Types Packs/Day Years [...] 2018 ZOSTER VACCINE (1 of 2) 2018 INFLUENZA VACCINE 02/23/2025 Insurance [facility] PPO Care Teams Compliance Clerk Relationship Specialty Start Date End Date Awais Ace MD [address] [place] [address] PCP - General Family Medicine 09/05/21
== END 2025-07-16 23:59 ==
LOC: RAD 08:52
PROVIDERS: PCP Family Medicine; Visit Provider Family Medicine
DX: Z12.2 Encounter for screening for malignant neoplasm of respiratory organs (principal); F17.210 Nicotine dependence, cigarettes, uncomplicated; R91.8 Other nonspecific abnormal finding of lung field
CPT/HCPCS: 71271